=== PATIENT | female | born 1930 | race African-American/Black ===

== ENCOUNTER 2016-05-20 07:36 | Inpatient (IN) | payer MEDICARE, BC ==
[2016-05-20] VITALS (15 sets, daily range): BP systolic 118–169; BP diastolic 61–90; PULSE 23–99; RESP 15–21; TEMP 96.5–97.9; O2SAT 5–99
[~2016-05-20] VITALS: Ht 167.6 cm; Wt 70.5 kg
[~2016-05-20 07:36] MED LIST: ASPI81 PO; ATEN1TAB73 PO; CALC600T34 PO; CALC625 PO; FISH1000 PO; METH2.5 PO; PRED5 PO; RANI150 PO; SIMV20 PO; TYLE3 PO; VICOTAB4 PO
--- NOTE | 2016-05-20 08:17 | PD ---
HPI Chief Complaint: GI Complaint Time Seen by Provider: 07:46 Travel History International Travel<30 days: No Contact w/Intl Traveler<30days: No Traveled to known affect area: No History of Present Illness HPI 85-year-old female came to the emergency room with history of abdominal pain, nausea and vomiting for past 2 days. She is here with her neighbor who brought her in. Patient seems uncomfortable. She is not the best historian and the history is obtained both from her and the friend. Patient points to her periumbilical area as the location of her pain. No radiation. Vital signs were stable. She said she vomited couple times last night. PFSH Past Medical History Narrative Medical List of her past medical, surgical, social and family history was reviewed from the nursing note. Hx Anticoagulant Therapy: No Arthritis: Yes Heart Rhythm Problems: Yes (TACHYCARDIA) High Cholesterol: Yes Hypertension: Yes Immunizations Current: No Tetanus Vaccination: Unknown Influenza Vaccination: No ?: Not Menopausal: Yes Past Surgical History Surgical History: No Previous Surgery Tonsillectomy: Yes Other Surgery: Yes Social History Alcohol Use: No Tobacco Use: No Substance Use: No Allergies-Medications (Allergen,Severity, Reaction): Coded Allergies: Motrin (Verified Allergy, Severe, 05/20/16) Comments List of her allergies reviewed from the nursing note. Reported Meds & Prescriptions Reported Meds & Active Scripts Active Tylenol #3 (Acetaminophen/Codeine Phosphate) 300 Mg/30 Mg Tab 1 Tab PO Q6HPRN Reported Fiber Con (Calcium Polycarbophil) 625 Mg Tab 1,250 Mg PO DAILY Calcium 600 Mg Tab 600 Mg PO DAILY Fish Oil 1,000 Mg Cap 1,200 Mg PO DAILY Tenormin (Atenolol) 25 Mg Tab 25 Mg PO DAILY Zocor (Simvastatin) 20 Mg Tab 20 Mg PO HS Rheumatrex (Methotrexate) 2.5 Mg Tab 10 Mg PO WEEKLY Zantac (Ranitidine HCl) 150 Mg Tab 150 Mg PO Vicoprofen (Hydrocodone Bitartrate/Ibuprofen) 7.5 Mg/200 Mg Tab 1 Tab PO QID Deltasone 5 mg Tab (Prednisone) 5 Mg Tab 10 Mg PO DAILY Narrative Medication List of her home medications reviewed from the nursing note. Review of Systems Except as stated in HPI: all other systems reviewed are Neg Physical Exam Narrative GENERAL: Awake, alert, elderly and frail, moderate distress, anxious SKIN: Warm and dry. Pale HEAD: Atraumatic. Normocephalic. EYES: Pupils equal and round. No scleral icterus. No injection or drainage. Pallor ENT: No nasal bleeding or discharge. Dry mucous membrane with coated tongue. NECK: Trachea midline. No JVD. CARDIOVASCULAR: Regular rate and rhythm. No murmur appreciated. RESPIRATORY: No accessory muscle use. Clear to auscultation. Breath sounds equal bilaterally. GASTROINTESTINAL: Abdomen soft, tender in the periumbilical area, nondistended. Hepatic and splenic margins not palpable. MUSCULOSKELETAL: No obvious deformities. No clubbing. No cyanosis. No edema. NEUROLOGICAL: Awake and alert. No obvious cranial nerve deficits. Motor grossly within normal limits. Normal speech. PSYCHIATRIC: Appropriate mood and affect; insight and judgment normal. Data Data Last Documented VS Vital Signs Date Time Temp Pulse Resp B/P Pulse Ox O2 Delivery O2 Flow Rate FiO2 05/20/16 15:00 84 21 162/74 95 Room Air 05/20/16 08:10 97.9 Orders Type And Screen (05/20/16 08:20) Complete Blood Count With Diff (05/20/16 08:20) Comprehensive Metabolic Panel (05/20/16 08:20) Lipase (05/20/16 08:20) Prothrombin Time / Inr (Pt) (05/20/16 08:20) Urinalysis - C+S If Indicated (05/20/16 08:20) Ct Abd/Pel W/O Iv Contrast (05/20/16 08:20) Iv Access Insert/Monitor (05/20/16 08:20) Ecg Monitoring (05/20/16 08:20) Oximetry (05/20/16 08:20) Ondansetron Inj (Zofran Inj) (05/20/16 08:30) Sodium Chloride 0.9% Flush (Ns Flush) (05/20/16 08:30) Troponin I (05/20/16 08:20) Lactic Acid (05/20/16 08:20) Sodium Chlorid 0.9% 500 Ml Inj (Ns 500 M (05/20/16 08:30) Electrocardiogram (05/20/16 ) Sodium Chlorid 0.9% 500 Ml Inj (Ns 500 M (05/20/16 10:00) Piperacil-Tazo 4.5 Gm Premix (Zosyn 4.5 (05/20/16 10:00) Ct Abd/Pel W Iv Contrast(Rout) (05/20/16 10:08) Oral Contrast - Adult (05/20/16 10:09) Diatrizoate Liq (Md Flores Liq) (05/20/16 10:24) Metoclopramide Inj (Reglan Inj) (05/20/16 10:45) Iohexol 350 Inj (Omnipaque 350 Inj) (05/20/16 13:26) Insert Ng Tube (05/20/16 15:08) Admit Order (Ed Use Only) (05/20/16 15:11) Labs Laboratory Tests Test 05/20/16 05/20/16 05/20/16 08:10 08:25 08:30 Urine Color YELLOW Urine Turbidity CLEAR Urine pH 7.0 Urine Specific [place] 1.030 Urine Protein 100 mg/dL Urine Glucose (UA) NEG mg/dL Urine Ketones TRACE mg/dL Urine Occult Blood NEG Urine Nitrite NEG Urine Bilirubin NEG Urine Urobilinogen LESS THAN 2.0 MG/DL Urine Leukocyte Esterase NEG Urine RBC 2 /hpf Urine WBC 2 /hpf Urine Squamous Epithelial <1 /hpf Cells Urine Hyaline Casts 11 /lpf Urine Mucus FEW /lpf Microscopic Urinalysis Comment CULT NOT INDICATED White Blood Count 13.3 TH/MM3 Red Blood Count 4.36 MIL/MM3 Hemoglobin 12.6 GM/DL Hematocrit 37.9 % Mean Corpuscular Volume 87.1 FL Mean Corpuscular Hemoglobin 28.9 PG Mean Corpuscular Hemoglobin 33.2 % Concent Red Cell Distribution Width 16.0 % Platelet Count 355 TH/MM3 Mean Platelet Volume 8.1 FL Neutrophils (%) (Auto) 88.0 % Lymphocytes (%) (Auto) 5.8 % Monocytes (%) (Auto) 5.7 % Eosinophils (%) (Auto) 0.2 % Basophils (%) (Auto) 0.3 % Neutrophils # (Auto) 11.7 TH/MM3 Lymphocytes # (Auto) 0.8 TH/MM3 Monocytes # (Auto) 0.8 TH/MM3 Eosinophils # (Auto) 0.0 TH/MM3 Basophils # (Auto) 0.0 TH/MM3 CBC Comment DIFF FINAL Differential Comment Prothrombin Time 10.7 SEC Prothromb Time International 1.0 RATIO Ratio Sodium Level 136 MEQ/L Potassium Level 3.8 MEQ/L Chloride Level 99 MEQ/L Carbon Dioxide Level 26.1 MEQ/L Anion Gap 11 MEQ/L Blood Urea Nitrogen 29 MG/DL Creatinine 1.37 MG/DL Estimat Glomerular Filtration 44 ML/MIN Rate Random Glucose 135 MG/DL Calcium Level 8.8 MG/DL Total Bilirubin 0.4 MG/DL Aspartate Amino Transf 13 U/L (AST/SGOT) Alanine Aminotransferase 13 U/L (ALT/SGPT) Alkaline Phosphatase 68 U/L Troponin I LESS THAN 0.02 NG/ML Total Protein 7.5 GM/DL Albumin 3.1 GM/DL Lipase 159 U/L Blood Type O NEGATIVE Antibody Screen NEGATIVE Lactic Acid Level 1.9 mmol/L MDM Medical Decision Making Medical Screen Exam Complete: Yes Emergency Medical Condition: Yes Medical Record Reviewed: Yes Interpretation(s) Twelve-lead EKG was reviewed by me. Normal sinus rhythm, normal axis, multiple PVCs, nonspecific ST-T wave changes. Heart rate of 84 bpm. Differential Diagnosis Small bowel obstruction, mesenteric adenitis, enteritis Narrative Course 1:38 PM blood test results were back. Patient has leukocytosis. Initial CT was done without contrast which was read by the radiologist as subtle abnormality noticed and questioning abscess. Require repeat CT with by mouth contrast. It took a long time for the patient to drink the contrast since initially she was very nauseous and had to be medicated twice. The CT just got done. Awaiting for the CT report at this point. Patient was given IV fluid bolus. She was given IV antibiotics as well. Patient is nothing by mouth currently. Patient is dehydrated and he is within normal limits. 3:[address] was suggestive of possible small bowel obstruction versus ileus as per the radiologist. An NG tube was ordered. Patient was admitted to the hospitalist. She will require surgical consult probably and repeat x-rays versus CT. Procedures EKG Prior to Arrival: No Diagnosis Primary Impression: Small bowel obstruction Additional Impressions: Abdominal pain Qualified Code: R10.33 - Periumbilical abdominal pain Intractable vomiting Qualified Code: R11.10 - Intractable vomiting, presence of nausea not specified, unspecified vomiting type Admitting Information Admitting Physician Requests: Admit Fabrice Liao MD May 20, 2016 08:17
[2016-05-20] MEDS ORDERED: SODIUM CHLORID 0.9% 500 ML INJ 500 ML IV ONE ×2 (08:30→10:00)
[2016-05-20] MEDS ORDERED: ONDANSETRON HCL 4 MG/2 ML VIAL IVP ONE (08:30)
[2016-05-20] MEDS ORDERED: SODIUM CHLORIDE 0.9% FLUSH 5 ML FLUSH IVF PRN (08:30)
[2016-05-20 08:45] LABS: AUTOMATED NEUTROPHIL # 11.7 TH/MM3 (1.8-7.7); BASOPHIL % 0.3 % (0.0-2.0); EOSINOPHIL % 0.2 % (0.0-4.0); HEMATOCRIT 37.9 % (35.0-46.0); HEMO FLAGS DIFF FINAL; LYMPH % 5.8 % (9.0-44.0); LYMPHOCYTE # 0.8 TH/MM3 (1.0-4.8); MEAN CELL VOLUME 87.1 FL (80.0-100.0); MEAN CORPUSCULAR HEMOGLOBIN 28.9 PG (27.0-34.0); MEAN CORPUSCULAR HGB CONC 33.2 % (32.0-36.0); MONO % 5.7 % (0.0-8.0); PLATELET COUNT 355 TH/MM3 (150-450); RED BLOOD COUNT 4.36 MIL/MM3 (4.00-5.30); WHITE BLOOD COUNT 13.3 TH/MM3 (4.0-11.0)
[2016-05-20 08:53] LABS: PROTHROMBIN TIME - PATIENT 10.7 SEC (9.8-11.6)
[2016-05-20 09:01] LABS: BLOOD, URINE NEG (NEG); COMMENT (UR) CULT NOT INDICATED; CULTURE IF INDICATED CULT NOT INDICATED; GLUCOSE,URINE NEG (NEG); HYALINE CAST, URINE 11 /lpf (RARE); KETONE, URINE TRACE mg/dL (NEG); MUCUS URINE FEW /lpf (OCC); NITRITE,URINE NEG (NEG); SQUAMOUS EPITHELIAL CELL URINE <1 /hpf (0-5); URINE COLOR YELLOW (YELLW/STRAW)
[2016-05-20 09:06] LABS: ANION GAP 11 MEQ/L (5-15); AST (GOT) 13 U/L (15-37); BICARBONATE 26.1 MEQ/L (21.0-32.0); BLOOD UREA NITROGEN 29 MG/DL (7-18); CHLORIDE 99 MEQ/L (98-107); GLOMERULAR FILTRATION RATE 44 ML/MIN (>89); POTASSIUM 3.8 MEQ/L (3.5-5.1); SODIUM (NA) 136 MEQ/L (136-145)
[2016-05-20 09:11] LABS: ALKALINE PHOSPHATASE 68 U/L (45-117); ALT (GPT) 13 U/L (10-53); TOTAL BILIRUBIN ADULT 0.4 MG/DL (0.2-1.0)
--- NOTE | 2016-05-20 09:40 | RADRPT ---
EXAM DATE/TIME: 05/20/2016 08:50 [facility] COMPARISON: No previous studies available for comparison. INDICATIONS : Mid-abdomen pain, nausea and vomiting. ORAL CONTRAST: No oral contrast ingested. RADIATION DOSE: 9.96 CTDIvol (mGy) MEDICAL HISTORY : Hypertension. SURGICAL HISTORY : None. ENCOUNTER: Initial ACUITY: 1 day PAIN SCALE: 6/10 LOCATION: abdomen TECHNIQUE: Volumetric scanning of the abdomen and pelvis was performed. Using automated exposure control and ad justment of the mA and/or kV according to patient size, radiation dose was kept as low as reasonably achievable to obtain optimal diagnostic quality images. FINDINGS: There is mild dilatation of the descending aorta. Minimal bibasilar parenchymal changes are noted. There is no pneumothorax. 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 The liver is free of focal defects. Trace ascites is noted. There is induration in the mesentery in the right upper quadrant. A small abscess cannot be excluded . I cannot find any free air. Calcification is seen in the uterus. Excessive vascular calcifications are evident. CONCLUSION: 1. Abnormal CT scan of the abdomen. Repeat CT scan is suggested with good oral contrast to exclude an abscess. There is only partial bowel opacification on this study. 2. Extensive vascular calcifications with dilatation of the thoraco-abdominal aorta as described abo ve. Dallas Nunez MD FACR on May 20, 2016 at 9:26 Board Certified Radiologist. This report was verified electronically.
[2016-05-20] MEDS ORDERED: PIPERACIL-TAZO 4.5 GM PREMIX 100 ML IV ONE (10:00)
[2016-05-20] MEDS ORDERED: DIATRIZOATE MEGLUM/DIATRIZOATE SOD 9 ML CUP ONE (10:24)
[2016-05-20] MEDS ORDERED: METOCLOPRAMIDE HCL 10 MG/2 ML VIAL IV PUSH ONE (10:45)
--- NOTE | 2016-05-20 11:56 | EKG ---
Date Performed: 05/20/2016 Time Performed: 08:31:19 PTAGE: 85 years EKG: Sinus rhythm WITH FREQUENT VENTRICULAR PREMATURE COMPLEXES WITH OCCASIONAL SUPRAVENTRICULAR PREMATURE COMPLEXES P OSSIBLE LEFT ATRIAL ENLARGEMENT ABNORMAL RHYTHM ECG PREVIOUS TRACING : 02/14/2010 12.19 DOCTOR: Rhett Enriquez Interpretating Date/Time 05/20/2016 11:54:12
[2016-05-20] MEDS ORDERED: IOHEXOL 350 MG/ML 10 ML VIAL (for RAD DIAG) IV ONE (13:26)
[2016-05-20] MEDS ORDERED: ACETAMINOPHEN 325 MG TAB PO PRN (15:30)
[2016-05-20] MEDS ORDERED: NALOXONE HCL 0.4 MG/ML AMP IV PRN (15:30)
[2016-05-20] MEDS ORDERED: SODIUM CHLORIDE 0.9% FLUSH 5 ML FLUSH FLUSH PRN (15:30)
--- NOTE | 2016-05-20 15:52 | RADRPT ---
EXAM DATE/TIME: 05/20/2016 13:18 [facility] COMPARISON: CT ABDOMEN & PELVIS W/O CONTRAST, May 20, 2016, 8:50. INDICATIONS : Mid-abdomen pain with nausea and vomiting. IV CONTRAST: 75 cc Omnipaque 350 (iohexol) IV ORAL CONTRAST: Prescribed oral contrast ingested. RADIATION DOSE: 9.96 CTDIvol (mGy) MEDICAL HISTORY : Hypertension. SURGICAL HISTORY : None. ENCOUNTER: Initial ACUITY: 1 day PAIN SCALE: 6/10 LOCATION: Abdomen. TECHNIQUE: Volumetric scanning of the abdomen and pelvis was performed. Using automated exposure control and adjustment of the mA and/or kV according to patient size, radiation dose was kept as low as reasonably achievable to obtain optimal diagnostic quality images. FINDINGS: Lung bases are clear. There is mild dilatation of the descending aorta. The descendin g aorta is dilated to 3.8 cm. There is no pericardial effusion. There is moderate ascites. The dolores er is small. Spleen is unremarkable. Pancreas and adrenals are unremarkable. Kidneys are small and shrunken. There is no adenopathy. In the pelvis, there is a calcification what looks like a fibroid uterus. There is trace fluid in th e pelvis. There is no adnexal mass to account for the ascites. There is dilatation of a proximal small bowel when compared to distal. The distal small bowel is de compressed in its very distal segment. The cecum is decompressed as well. CONCLUSION: 1. Findings suspicious for a small bowel obstruction at or near the cecum and/or terminal ileum. The re are no inflammatory changes evident to suggest an inflammatory process. 2. The liver is small and shrunken with a modest amount of ascites. 3. I have no prior. The area of concern in the right mid abdomen is only normal appearing small danny l. I do not see an abscess. 4. In spite of the moderate vascular calcifications I do see a normal appearing SMA. The DWAYNE is not well visualized. Dallas Nunez MD FACR on May 20, 2016 at 15:28 Board Certified Radiologist. This report was verified electronically.
[2016-05-20] MEDS ORDERED: MORPHINE SULFATE 4 MG/ML INJ IV PUSH ONE (16:45)
[2016-05-20] MEDS: HEPARIN SODIUM - SQ 10,000 UNITS/ML VIAL SQ SCH (16:56)
[2016-05-20] MEDS: D5-1/2 NS + KCL 20 MEQ INJ 1,000 ML IV SCH (16:57)
[2016-05-20] MEDS ORDERED: hydrALAZINE HCL 20 MG/ML VIAL IV PUSH PRN (17:15)
--- NOTE | 2016-05-20 18:35 | RADRPT ---
EXAM DATE/TIME: 05/20/2016 17:53 [facility] COMPARISON: CT ABDOMEN & PELVIS W/O CONTRAST, May 20, 2016, 8:50. CT ABDOMEN & PELVIS W CONTRAST, May 20 17, 13:18. INDICATIONS : Confirm NG tube placement. MEDICAL HISTORY : None. SURGICAL HISTORY : None. ENCOUNTER: Initial ACUITY: 1 day PAIN SCORE: Non-responsive. LOCATION: chest FINDINGS: Examination of the abdomen demonstrates a persistent small bowel ileus. Nasogastric tube is within th e fundus of the stomach.. No free air is identified. No organomegaly is evident. Calcific atheroscl erotic vascular disease is noted. Degenerative changes of the spine are noted. CONCLUSION: Persistent partial small bowel obstructive pattern. Nasogastric tube in the fundus of the stomach. Soy Temple MD on May 20, 2016 at 18:31 Board Certified Radiologist. This report was verified electronically.
[2016-05-20] MEDS: SODIUM CHLORIDE 0.9% FLUSH 5 ML FLUSH FLUSH SCH (21:00)
[2016-05-21] VITALS (8 sets, daily range): BP systolic 120–141; BP diastolic 59–82; PULSE 67–87; RESP 17–20; TEMP 97.4–98.8; O2SAT 94–96
--- NOTE | 2016-05-21 00:04 | MB ---
cc: ISAAC GARZA M.D. DATE OF : 1930 DATE OF CONSULTATION: 05/20/2016 REASON FOR CONSULTATION: Possible bowel obstruction. HISTORY OF PRESENT ILLNESS Ms. Gray is a very pleasant 85 year-old -[place] female who presented to the emergency department for nausea, vomiting, abdominal pain for 48 hours. She states that over the last two days she has not been feeling well. She has had abdominal pain and vomiting. She states she has vomited multiple times. She reports periumbilical abdominal pain that radiates toward her right side. She denies previous episodes. She denies previous surgeries. She denies any fever or chills. Overall the patient is not a fantastic historian but she is able to provide basic information. PAST MEDICAL HISTORY: She denies any significant medical history. PAST SURGICAL HISTORY: She denies any previous surgeries. SOCIAL HISTORY: She lives alone with assistance of her children who check on her. She does not smoke or drink. She does not do any drugs. MEDICATIONS: Documented in the EMR. Please see it for details. ALLERGIES: MOTRIN PHYSICAL EXAMINATION: VITAL SIGNS: Temperature is 98, pulse is 80, blood pressure is 140/90, respiratory 20. GENERAL: A pleasant thin elderly female, sitting in the emergency department who appears comfortable in no distress. HEENT: Pupils equal, round, and reactive to light. Sclera white. Oropharynx is clear and moist. She has an NG tube in place in the left nares. Neck is supple. Lungs: Clear to auscultation bilaterally. Heart: S1-S2 no murmur. Abdomen: Soft, slightly tender. No rebound or guarding. She does have a few bowel sounds. Overall appears to be hypoactive. There is no significant distension noted. She has no abdominal scars that I can appreciate. No palpable masses. Extremities: Free range of motion x4. Neurological: Alert and oriented x3. LABORATORY DATA: White blood cell count 13, hemoglobin 12, platelet count 355, electrolytes are all within normal limits except for elevated creatinine of 1.37. Elevated glucose 135. X-RAYS: CT scan of the abdomen and pelvis shows diffuse dilatation of the small bowel and stomach with decompressed colon. No obvious masses. She does have some left free fluid noted around the liver. No obvious hernias. IMPRESSION Ileus versus small bowel obstruction. PLAN At this point the patient has no previous surgical procedures so the chance of her having a mechanical bowel obstruction from adhesions is very low. Her most likely diagnosis is ovalle ileus versus obstruction from malignancy. I assisted the nurse in repositioning the NG tube and we got out about 600 cc. The patient states that she feels better after the NG tube was placed. I recommended a follow up abdominal film tomorrow to check the CT contrast to see if it has progressed to the colon. The patient should be managed several days with nonoperative management as she does not actually need surgery at this time and I would like to avoid it if at all possible. If she progresses about surgical intervention, can likely DC her NG and start her on a diet. However, if she fails she may require diagnostic laparoscopy possible exploratory laparotomy to rule out a malignancy causing the distal obstruction. MD MARSHALL Osuna/NOMAN /9:50 PM /11:55 PM
[2016-05-21] MEDS: MORPHINE SULFATE 4 MG/ML INJ IV PRN ×2 (00:22→13:25)
[2016-05-21] MEDS: PIPERACIL-TAZO 3.375 GM PREMIX 50 ML IV SCH ×3 (00:23→12:45)
[2016-05-21] MEDS ORDERED: MORPHINE SULFATE 4 MG/ML INJ IV PRN (00:30)
[2016-05-21] MEDS: FAMOTIDINE 20 MG/2 ML VIAL IV SCH ×2 (01:10→12:44)
[2016-05-21 04:02] LABS: HEMATOCRIT 39.7 % (35.0-46.0); MEAN CELL VOLUME 85.8 FL (80.0-100.0); MEAN CORPUSCULAR HEMOGLOBIN 28.1 PG (27.0-34.0); MEAN CORPUSCULAR HGB CONC 32.7 % (32.0-36.0); PLATELET COUNT 378 TH/MM3 (150-450); RED BLOOD COUNT 4.63 MIL/MM3 (4.00-5.30); RED CELL DISTRIBUTION WIDTH 16.2 % (11.6-17.2); WHITE BLOOD COUNT 15.4 TH/MM3 (4.0-11.0)
[2016-05-21 04:03] LABS: HEMO FLAGS AUTO DIFF
[2016-05-21 04:26] LABS: BICARBONATE 25.8 MEQ/L (21.0-32.0); POTASSIUM 4.2 MEQ/L (3.5-5.1)
[2016-05-21] MEDS: HEPARIN SODIUM - SQ 10,000 UNITS/ML VIAL SQ SCH ×2 (05:44→16:38)
[2016-05-21] MEDS: D5-1/2 NS + KCL 20 MEQ INJ 1,000 ML IV SCH ×2 (05:45→16:38)
--- NOTE | 2016-05-21 06:28 | RADRPT ---
EXAM DATE/TIME: 05/21/2016 05:54 [facility] COMPARISON: CT ABDOMEN & PELVIS W CONTRAST, May 20, 2016, 13:18. INDICATIONS : Follow up obstruction. MEDICAL HISTORY : None. SURGICAL HISTORY : None. ENCOUNTER: Subsequent ACUITY: 3 days PAIN SCORE: 6/10 LOCATION: Bilateral lower quadrant FINDINGS: Supine view of the abdomen was performed. There is persistent gaseous distention of small bowel the d iameter of about 4 cm characteristic of small bowel obstruction. There is some residual contrast in d istal bowel and within the bladder. Scoliosis. CONCLUSION: 1. Persistent gaseous distention of small bowel similar to May 20. NG coiled in stomach. Jonathan Sandoval MD on May 21, 2016 at 6:24 Board Certified Radiologist. This report was verified electronically.
[2016-05-21 07:14] LABS: BANDS 7 % (0-6); BASOPHILS 1 % (0-2); EOSINOPHILS 1 % (0-4); NEUTROPHIL # MANUAL DIFF 13.7 TH/MM3 (1.8-7.7); PLATELET ESTIMATE SMEAR NORMAL (NORMAL); PLATELET MORPHOLOGY NORMAL (NORMAL); POLYS (SEG NEUTROPHILS) 82 % (16-70); SCAN/DIFF FINAL DIFF MANUAL; WBC DIFF SAMPLE 100
[2016-05-21] MEDS: SODIUM CHLORIDE 0.9% FLUSH 5 ML FLUSH FLUSH SCH ×2 (08:01→21:00)
--- NOTE | 2016-05-21 08:20 | MH ---
cc: JOHNATHON BENJAMIN MD DATE OF ADMISSION 05/20/2016 DATE OF 1930 CHIEF COMPLAINT Abdominal pain. Travel in the past 30 days, none. HISTORY OF THE PRESENT ILLNESS This is a pleasant 85-year-old black female who had been in her usual state of health up until the past few days. She noticed some mild pain in her mid abdomen around the umbilical area which seemed to be more of a cramping sensation. She states the pain would come and go but after 24 hours the pain became more intense to the point that the patient could not rest last night. She now describes it as a sharp pain that does not radiate. It seems to stay in the area of her periumbilical area. She does complain of some nausea and vomiting in which she vomited several times last night. She also notes some diarrhea approximately a week ago. The patient does take laxatives on an as needed basis but states that sometimes she has to take one or two doses every week for her bowels to move. She does not remember when she had her last normal bowel movement but she thinks it was a day or two before this diarrhea started up approximately a week ago. The patient states that she did eat a regular supper last night but was unable to eat any breakfast this morning. She currently has a neighbor who is at her bedside and assisting with some of her history. The patient is alert, oriented, cooperative but she is a fair historian when it comes to her history. She can answer simple yes or no questions. Currently the patient denies any chest pain. No shortness of breath. No headache. No acute weight gain or weight loss over the past few months. The patient does walk with a cane. She is able to do most of her activities of daily living but she does have two grown daughters that live in the home with her. PAST MEDICAL HISTORY According to the record includes: 1. Arthritis. 2. Hyperlipidemia. 3. History of tachycardia. 4. Hypertension. PAST SURGICAL HISTORY Tonsillectomy. ALLERGIES MOTRIN. MEDICATIONS Reported medications: 1. Fiber Con. 2. Calcium. 3. Fish oil. 4. Tenormin. 5. Zocor. 6. Methotrexate. 7. Zantac. 8. Vicoprofen. 9. Deltasone. SOCIAL HISTORY The patient denies any tobacco, alcohol or illicit drug use. She does live in her own home with two grown daughters who live with her. She also has a son that lives out of town but is her main melter assistant when she needs to make decisions. This information is given to me per the neighbor. Son's name is Miguel. FAMILY HISTORY Not applicable. REVIEW OF SYSTEMS A 10 point review was done. Positives noted were the patient's nausea, vomiting, abdominal pain, diarrhea approximately one week ago, generalized weakness. Sub systems are unremarkable or negative. PHYSICAL EXAMINATION VITAL SIGNS: Temperature 97.9, pulse 99, respiratory rate 20, blood pressure initially on admission was 131/70, now is 162/89. The patient's O2 saturation 99% on room air. GENERAL: This is a elderly, frail black female looks to be her stated age. Alert, conversational. Giving basic information. Mild to moderate anxiety over receiving an nasogastric tube. SKIN: Pale mucous membranes. Warm and dry. HEENT: Atraumatic, normocephalic. Pupils equal, round, reactive at 2. No scleral icterus. No drainage. She does have pale mucous membranes. No nasal discharge. NECK: Thin, supple. Trachea is midline. CARDIOVASCULAR: Regular rate and rhythm. No murmurs, rubs or gallops noted. She has no edema and her pulses are intact. LUNGS: Essentially clear to auscultation anteriorly and posteriorly with no wheezes, rhonchi or rales. ABDOMEN: Round. Taut. Some mild tenderness on palpation around the umbilical area. She has some hypoactive bowel sounds in her upper left and right quadrants but no bowel sounds appreciated in her lower quadrants. MUSCULOSKELETAL: She moves her extremities with purpose. 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 She can overcome resistance. She has some mild arthritic changes in her feet bilaterally. No cyanosis. No edema. NEUROLOGICAL: She is alert and oriented. Able to answer simple questions about her symptoms. Speech is clear. PSYCHIATRIC: A lot of anxiety over current condition. Judgment is normal. LABORATORY DATA Diagnostic data, WBC is 13.3, RBC 4.36, hemoglobin 12.6, hematocrit 37.9. Platelet count 355. Lymphocyte count 5.8. Neutrophil count although 88. PT INR 1.0. Chemistry shows sodium of 136, potassium 3.8, chloride 99, carbon dioxide 26.1, anion gap 11. BUN 29, creatinine 1.37. GFR 44. Glucose is 135. Troponin is less than 0.02. Albumin 3.1. Urine is yellow, clear, pH is 7.0, specific gravity is 1.030, protein 100, glucose negative. Ketones trace. Occult blood negative. Nitrates negative. Bilirubin negative. Leukocyte esterase negative. No culture pending. IMAGING Shows abdominal CT scan initially done at [address] scan, cannot exclude an abscess but there is only a partial bowel opaque showing in the study. Extensive vascular calcifications on the aorta. This scan was repeated at 10:08, suspicious for small bowel obstruction at or near the cecum or the terminal ileum. There is no inflammatory changes to show an inflammatory process. The liver is small and shrunken with a modest amount of ascites. In spite of moderate vascular calcification I see a normal SMA. The DWAYNE is not that well visualized. ASSESSMENT AND PLAN 1. Small bowel obstruction. 2. Leukocytosis. 3. Renal insufficiency. 4. Mild protein calorie malnutrition. 5. Abdominal pain. 6. Nausea and vomiting. 7. Hypertension. Our plan is to admit for inpatient status. For her course of treatment we will monitor her vital signs q.4h. Activity, out of bed with some assistance. We will monitor her blood glucose before meals and bedtime at least for 24 hours. The patient is not a known diabetic. Telemetry monitoring, intake and output. We will consult general surgery. The patient will be n.p.o. She will have an nasogastric tube inserted for her treatment regimen. Gentle hydration with IV fluids. O2 per nasal cannula. She will be placed on Zosyn IV. VTE prophylaxis with heparin. Peptic ulcer disease prophylaxis with Pepcid IV. The patient will require intake and output. Reconcile her medications. Depending on her response to treatment we will continue to re-evaluate her needs over the course of this hospital stay. The patient has no living will. The patient would like her son to be called if there is any emergency decisions that need to be made on her. She will be full code, full aggressive care and we will follow. DICTATED BY: IFEOMA Wei MD VALDO Haney/LATHA /4:51 PM /8:18 AM
[2016-05-21] MEDS ORDERED: methylPREDNISolone SOD SUCC 40 MG/1 ML VIAL IM SCH (09:00)
[2016-05-21] MEDS ORDERED: FAMOTIDINE 20 MG/2 ML VIAL IV SCH (09:00)
[2016-05-21] MEDS: methylPREDNISolone SOD SUCC 40 MG/1 ML VIAL IV SCH (10:03)
--- NOTE | 2016-05-21 13:58 | HHI.PR ---
Subjective Remarks alert responding to verbal stimuli NGT, draining. occ abd pain reoccurs, periumbilical Objective Objective Results - Vital Signs Date Time Temp Pulse Resp B/P Pulse Ox O2 Delivery O2 Flow Rate FiO2 05/21/16 08:00 98.8 75 17 120/59 95 05/21/16 06:01 77 05/21/16 04:00 97.4 72 17 135/62 94 05/21/16 00:12 84 05/21/16 00:00 98.2 87 19 137/82 96 05/20/16 23:45 96.5 81 18 132/88 93 05/20/16 19:18 77 18 140/90 97 05/20/16 17:21 80 19 149/70 97 05/20/16 17:00 82 15 149/68 97 Room Air 05/20/16 16:00 78 21 151/72 5 Room Air 05/20/16 15:00 84 21 162/74 95 Room Air 05/20/16 14:00 73 18 165/83 98 Room Air I/O 05/20/16 05/20/16 05/20/16 05/21/16 05/21/16 05/21/16 07:00 15:00 23:00 07:00 15:00 23:00 Intake Total 1133 ml 0 ml Output Total 200 ml 100 ml Balance -200 ml 1033 ml 0 ml Intake Oral 0 ml 0 ml IV Total 1133 ml Output Gastric Drainage Total 100 ml Emesis 200 ml # Voids 1 6 Result Diagram: 05/21/16 0322 05/21/16 0322 Other Results Last Impressions Abdomen X-Ray 05/21/16 0600 Signed Impressions: Service Date/Time: May 05:54 - CONCLUSION: 1. Persistent gaseous distention of small bowel similar to May 20. NG coiled in stomach. Jonathan Sandoval MD Abdomen/Pelvis CT 05/20/16 1008 Signed Impressions: Service Date/Time: Friday, May 20, 2016 13:18 - CONCLUSION: 1. Findings suspicious for a small bowel obstruction at or near the cecum and/or terminal ileum. There are no inflammatory changes evident to suggest an inflammatory process. 2. The liver is small and shrunken with a modest amount of ascites. 3. I have no prior. The area of concern in the right mid abdomen is only normal appearing small bowel. I do not see an abscess. 4. In spite of the moderate vascular calcifications I do see a normal appearing SMA. The DWAYNE is not well visualized. Dallas Nunez MD FACR Medications and IVs Active Medications Acetaminophen (Tylenol) 650 mg Q4H PRN PO; Start 05/20/16 at 15:30 Famotidine (Pepcid Inj) 20 mg BID IV; Start 05/21/16 at 09:00; Stop 05/21/16 at 09 :00; Status DC Famotidine (Pepcid Inj) 20 mg Q12H IV Last administered on 05/21/16 12:44; Admin Dose 20 MG; Start 05/21/16 at 01:00 Heparin Sodium (Porcine) (Heparin Inj) 5,000 units Q12H SQ Last administered on 05/21/16 05:44; Admin Dose 5,000 UNITS; Start 05/20/16 at 16:00 Hydralazine HCl (Apresoline Inj) 10 mg Q4H PRN IV PUSH; Start 05/20/16 at 17:15 IV Flush (NS Flush) 2 ml BID FLUSH; Start 05/20/16 at 21:00 IV Flush (NS Flush) 2 ml UNSCH PRN FLUSH; Start 05/20/16 at 15:30 Methylprednisolone Sodium Succinate (SoluMEDROL INJ) 10 mg DAILY IM; Start at 09:00; Stop 05/21/16 at 10:00; Status DC Methylprednisolone Sodium Succinate (SoluMEDROL INJ) 10 mg DAILY IV Last administered on 05/21/16 10:03; Admin Dose 10 MG; Start 05/21/16 at 10:00 Morphine Sulfate (Morphine Inj) 1 mg Q3H PRN IV Last administered on 05/21/16 13:25; Admin Dose 1 MG; Start 05/21/16 at 00:15 Morphine Sulfate (Morphine Inj) 1 mg Q3H PRN IV; Start 05/21/16 at 00:30 Morphine Sulfate (Morphine Inj) 4 mg ONCE ONCE IV PUSH Last administered on 05/20 16:57; Admin Dose 4 MG; Start 05/20/16 at 16:45; Stop 05/20/16 at 16:46; Status DC Naloxone HCl 0.4 mg 0.4 mg UNSCH PRN IV; Start 05/20/16 at 15:30 Ondansetron HCl (Zofran Inj) 4 mg Q6H PRN IVP; Start 05/20/16 at 15:30 Piperacillin Sod/ Tazobactam Sod (Zosyn 3.375 Gm Premix) 50 ml @ 100 mls/hr Q8HR IV Last administered on 05/21/16 12:45; Admin Dose 100 MLS/HR; Start at 22:00 Potassium Chloride/Dextrose/ Sod Cl (D5-03/23 NS + KCl 20 Meq Inj) 1,000 ml @ 75 mls/hr [id number] IV Last administered on 05/21/16 05:45; Admin Dose 75 MLS/HR; Start 05/20/16 at 15:16 ROS General: Other (in point ROS done. States include generalized weakness, NG tube, no BM, no diarrhea, no shortness of breath, abdominal pain waxes and wanes ) GI: Abdominal Pain Physical Exam Physical Exam PHYSICAL EXAMINATION GENERAL: This is a well-developed, thin female who appears to be wild distress. She is alert and awake, HEAD: Normocephalic without any lesion or mass noted. Facial features appear symmetric. OROPHARYNGEAL: Oropharynx without erythema or edema. NECK: Supple. No nuchal rigidity or lymphadenopathy. Trachea midline without deviation. CARDIAC: Regular rhythm, regular rate, S1 and S2 are heard. LUNGS: Clear to auscultation bilaterally. Eupneic respirations ABDOMEN: Soft, hypoactive Bowel sounds , more in the upper quadrants. mild guarding EXTREMITIES: No edema. Pulses equal bilateral. NEUROLOGICAL: Patient mood and affect appropriate. No focal deficit SKIN:Warm and moist Objective Remarks I'm doing okay I guess A/P Assessment and Plan 1. Small bowel obstruction. 2. Leukocytosis. 3. Renal insufficiency. 4. Mild protein calorie malnutrition. 5. Abdominal pain. 6. Nausea and vomiting. 7. Hypertension. vital signs q.4h., and within normal ranges. Patient afebrile general surgery. NG tube to suction. Patient still having some maria elena-umbilicus , pain off and on but with less intensity. Currently it is thought that this is a pain and ileus versus an obstruction. Currently conservative therapy and less patient does not return to her normal. follow for the next 2 or 3 days for course of treatment. Appreciate expert opinion. Continue with Zosyn, Solu-Medrol VTE prophylaxis with heparin. Peptic ulcer disease prophylaxis with Pepcid IV. Acute kidney injury mildly improved, gentle hydration We'll monitor labs in the morning Zaida MD VALDO Leon/LATHA /4:51 PM /8:18 AM Discussed With: Nurse, Family (patient), Other (dr. lynn, patient seen on his behalf) Jessi Dolan May 21, 2016 13:58
--- NOTE | 2016-05-21 16:46 | HHI.PR ---
Subjective Subjective Notes Resting in bed No complaints Not passing flatus Objective Vitals/I&O Vital Signs Date Time Temp Pulse Resp B/P Pulse Ox O2 Delivery O2 Flow Rate FiO2 05/21/16 12:00 97.8 78 19 130/69 95 05/20/16 17:00 Room Air Labs Laboratory Tests Test 05/21/16 05/21/16 01:41 03:22 Troponin I LESS THAN 0.02 White Blood Count 15.4 Red Blood Count 4.63 Hemoglobin 13.0 Hematocrit 39.7 Mean Corpuscular Volume 85.8 Mean Corpuscular Hemoglobin 28.1 Mean Corpuscular Hemoglobin 32.7 Concent Red Cell Distribution Width 16.2 Platelet Count 378 Mean Platelet Volume 8.5 Neutrophils (%) (Auto) Lymphocytes (%) (Auto) Monocytes (%) (Auto) Eosinophils (%) (Auto) Basophils (%) (Auto) Neutrophils # (Auto) Lymphocytes # (Auto) Monocytes # (Auto) Eosinophils # (Auto) Basophils # (Auto) CBC Comment AUTO DIFF Differential Total Cells 100 Counted Neutrophils % (Manual) 82 Band Neutrophils % 7 Lymphocytes % 5 Monocytes % 4 Eosinophils % 1 Basophils % 1 Neutrophils # (Manual) 13.7 Differential Comment FINAL DIFF MANUAL Platelet Estimate NORMAL Platelet Morphology Comment NORMAL Hematology Comments Sodium Level 135 Potassium Level 4.2 Chloride Level 99 Carbon Dioxide Level 25.8 Anion Gap 10 Blood Urea Nitrogen 24 Creatinine 1.19 Estimat Glomerular Filtration 52 Rate Random Glucose 124 Calcium Level 8.3 Cardiovascular: Regular Lungs: Clear Abdomen: Other (soft; minimally distended ) Extremities: No edema Narrative Exam NGT in place A/P Assessment and Plan 85 year old with SBO vs ileus -Continue NGT to [facility] until bowel function returns -CT abd/pelvis to show where contrast is -NPO--ice chips okay -Out of bed and mobilize I certify and attest that I personally examined this patient and reviewed her findings in the EMR. Ms Reyes is documenting our encounter on my behalf and entered orders under my direct supervision. I discussed our recommendations with the patient and family at the bedside. I also discussed our encounter with the nursing staff present. Queta Hillman MD, FACS May 21, 2016 16:46 Saman Braden MD May 22, 2016 10:44
--- NOTE | 2016-05-21 17:32 | RADRPT ---
EXAM DATE/TIME: 05/21/2016 17:02 [facility] COMPARISON: Prior study 05/20/2016 used for comparison. INDICATIONS : Abdominal pain, distension. ORAL CONTRAST: Prescribed oral contrast ingested. RADIATION DOSE: 13.65 CTDIvol (mGy) MEDICAL HISTORY : Cardiovascular disease. Hypertension. Early small bowel obstruction. SURGICAL HISTORY : None. ENCOUNTER: Subsequent ACUITY: 2 days PAIN SCALE: 4/10 LOCATION: Bilateral lower quadrant TECHNIQUE: Volumetric scanning of the abdomen and pelvis was performed. Using automated exposure control and adjustment of the mA and/or kV according to patient size, radiation dose was kept as low as reasonably achievable to obtain optimal diagnostic quality images. FINDINGS: Noncontrast CT scan of the abdomen and pelvis was performed. There is some fluid withi n the abdomen which has increased since the previous day. There is no free air within the abdomen. There is extensive contrast within the bladder with numerous diverticula likely related to the previo us IV contrasted study. On series 601, images 25 through 29, I believe I see a normal contrast-filled small appendix. Just a florian that and posterior to that is a small soft tissue structure which I am assuming is a decompresse d terminal ileum. That never distends and in retrospect was present on all of the studies, never real ly showing significant distension. There has however been definite improvement in the contrast within the bowel. There is now dense con trast throughout the colon. The oral contrast previously now extends all the way into the rectum. Th e small bowel remains distended similar to the previous study. I do not see a definite transition zo ne but with what I now believe is decompressed terminal ileum differential includes distal terminal i leitis. The unenhanced liver, gallbladder, spleen, pancreas, and kidneys are unremarkable except for a benign left renal cyst. CONCLUSION: 1. We can now clearly identify an appendix therefore I do not believe chronic appendicitis is within the differential. The terminal ileum never distends and the small bowel proximal to that is quite dis tended raising the possibility of a terminal ileitis or conceivably chronic Crohn's disease. 2. More peritoneal fluid today than there was on the previous study. Rhett Henley MD on May 21, 2016 at 17:20 Board Certified Radiologist. This report was verified electronically.
--- NOTE | 2016-05-21 23:44 | EKG ---
Date Performed: 05/21/2016 Time Performed: 01:28:28 PTAGE: 85 years EKG: Sinus rhythm with frequent PVCs Abnormal ECG NO PREVIOUS TRACING DOCTOR: Renato Hidalgo Interpretating Date/Time 05/21/2016 23:43:42
[2016-05-22] VITALS (7 sets, daily range): BP systolic 121–138; BP diastolic 66–80; PULSE 61–85; RESP 16–24; TEMP 96.9–97.5; O2SAT 94–98
[2016-05-22] MEDS: PIPERACIL-TAZO 3.375 GM PREMIX 50 ML IV SCH ×4 (00:03→21:30)
[2016-05-22] MEDS: FAMOTIDINE 20 MG/2 ML VIAL IV SCH ×2 (01:00→12:26)
[2016-05-22 04:59] LABS: AUTOMATED NEUTROPHIL # 10.2 TH/MM3 (1.8-7.7); BASOPHIL % 0.3 % (0.0-2.0); EOSINOPHIL % 0.2 % (0.0-4.0); HEMATOCRIT 36.3 % (35.0-46.0); HEMO FLAGS DIFF FINAL; LYMPH % 7.5 % (9.0-44.0); LYMPHOCYTE # 0.9 TH/MM3 (1.0-4.8); MEAN CELL VOLUME 86.1 FL (80.0-100.0); MEAN CORPUSCULAR HEMOGLOBIN 28.6 PG (27.0-34.0); MEAN CORPUSCULAR HGB CONC 33.2 % (32.0-36.0); MONO % 9.3 % (0.0-8.0); NEUT % 82.7 % (16.0-70.0); PLATELET COUNT 357 TH/MM3 (150-450); RED BLOOD COUNT 4.21 MIL/MM3 (4.00-5.30); WHITE BLOOD COUNT 12.4 TH/MM3 (4.0-11.0)
[2016-05-22] MEDS: HEPARIN SODIUM - SQ 10,000 UNITS/ML VIAL SQ SCH ×2 (05:07→16:14)
[2016-05-22] MEDS: D5-1/2 NS + KCL 20 MEQ INJ 1,000 ML IV SCH ×2 (05:09→20:36)
[2016-05-22 05:28] LABS: BICARBONATE 23.4 MEQ/L (21.0-32.0); MAGNESIUM 2.5 MG/DL (1.5-2.5)
[2016-05-22] MEDS: SODIUM CHLORIDE 0.9% FLUSH 5 ML FLUSH FLUSH SCH ×2 (08:40→20:13)
[2016-05-22] MEDS: methylPREDNISolone SOD SUCC 40 MG/1 ML VIAL IV SCH (08:40)
--- NOTE | 2016-05-22 11:24 | HHI.PR ---
Subjective Subjective Notes Ms. Gray c/o "stomach ache" Objective Vitals/I&O Vital Signs Date Time Temp Pulse Resp B/P Pulse Ox O2 Delivery O2 Flow Rate FiO2 05/22/16 08:00 97.5 65 18 138/66 94 05/20/16 17:00 Room Air Labs Laboratory Tests Test 05/22/16 04:15 White Blood Count 12.4 Red Blood Count 4.21 Hemoglobin 12.0 Hematocrit 36.3 Mean Corpuscular Volume 86.1 Mean Corpuscular Hemoglobin 28.6 Mean Corpuscular Hemoglobin 33.2 Concent Red Cell Distribution Width 16.0 Platelet Count 357 Mean Platelet Volume 8.1 Neutrophils (%) (Auto) 82.7 Lymphocytes (%) (Auto) 7.5 Monocytes (%) (Auto) 9.3 Eosinophils (%) (Auto) 0.2 Basophils (%) (Auto) 0.3 Neutrophils # (Auto) 10.2 Lymphocytes # (Auto) 0.9 Monocytes # (Auto) 1.2 Eosinophils # (Auto) 0.0 Basophils # (Auto) 0.0 CBC Comment DIFF FINAL Differential Comment Sodium Level 135 Potassium Level 4.0 Chloride Level 102 Carbon Dioxide Level 23.4 Anion Gap 10 Blood Urea Nitrogen 21 Creatinine 1.10 Estimat Glomerular Filtration 57 Rate Random Glucose 86 Calcium Level 8.3 Phosphorus Level 2.9 Magnesium Level 2.5 Cardiovascular: Regular Lungs: Clear Abdomen: Other (distended; mildly tender ) Extremities: No edema A/P Assessment and Plan 85 year old with SBO vs ileus -Replace NGT if any nausea or vomiting occurs -CT abd/pelvis to shows possible terminal ileitis -Will start Cirpo/Flagyl -NPO--ice chips okay -Out of bed and mobilize I CERTIFY AND ATTEST THAT I PERSONALLY EXAMINED THIS PATIENT. MS NGUYEN DOCUMENTED OUR VISIT AND ENTERED ORDERS IN THE EMR UNDER MY DIRECT SUPERVISION. I DISCUSSED THE CARE PLAN WITH THE NURSING STAFF AND FAMILY (IF PRESENT). ISAAC GARZA MD [facility] Queta Nguyen May 22, 2016 11:24 Isaac Garza MD May 28, 2016 11:47
--- NOTE | 2016-05-22 11:30 | HHI.PR ---
Subjective Remarks alert responding to verbal stimuli NGT removed, patient eating ice chips occ abd pain reoccurs, periumbilical, improving Objective Objective Results - Vital Signs Date Time Temp Pulse Resp B/P Pulse Ox O2 Delivery O2 Flow Rate FiO2 05/22/16 08:00 97.5 65 18 138/66 94 05/22/16 08:00 64 05/22/16 04:00 97.3 61 18 138/80 96 05/22/16 00:00 97.1 73 20 128/69 98 05/21/16 20:00 98.7 67 20 141/65 95 05/21/16 18:00 98.7 78 19 135/62 96 05/21/16 12:00 97.8 78 19 130/69 95 I/O 05/21/16 05/21/16 05/21/16 05/22/16 05/22/16 05/22/16 07:00 15:00 23:00 07:00 15:00 23:00 Intake Total 1133 ml 0 ml 563 ml 141 ml Output Total 100 ml 300 ml 300 ml Balance 1033 ml -300 ml 563 ml -159 ml Intake Oral 0 ml 0 ml 0 ml 0 ml IV Total 1133 ml 563 ml 141 ml Output Urine Total 200 ml 300 ml Gastric Drainage Total 100 ml 100 ml # Voids 6 1 # Bowel Movements 0 0 2 Result Diagram: 05/22/1641405/22/16414 ROS General: Fatigue, Weakness, Other (10 point ROS done., Abdominal pain waxes and wanes improving, fatigue and weakness. All other systems negative or unremarkable) GI: Abdominal Pain (improved), Other (no diarrhea, no BM yet) Physical Exam Physical Exam PHYSICAL EXAMINATION GENERAL: This is an ill female who appears to be in no acute distress at rest. She is drowsy and responds HEAD: Normocephalic without any lesion or mass noted. Facial features appear symmetric. OROPHARYNGEAL: Oropharynx without erythema or edema., Dry NECK: Supple. No nuchal rigidity or lymphadenopathy. Trachea midline without deviation. CARDIAC: Regular rhythm, regular rate, S1 and S2 are heard. LUNGS: Decreased to auscultation bilaterally. No wheeze, no rhonchi or no rale. No use of accessory muscles on inspiration or expiration.. Low volumes ABDOMEN: Soft, nontender, no organomegaly or masses. Bowel sounds are heard in all four quadrants. No rebound. No guarding. EXTREMITIES: No edema. Pulses equal bilateral. NEUROLOGICAL: Patient mood and affect appropriate. No focal deficit SKIN:Warm and moist Objective Remarks I'm doing okay. A/P Assessment and Plan 1. Small bowel obstruction. 2. Leukocytosis. 3. Renal insufficiency. 4. Mild protein calorie malnutrition. 5. Abdominal pain. 6. Nausea and vomiting. 7. Hypertension. vital signs q.4h., and within normal ranges. Patient afebrile general surgery. NG tube removed. She is eating ice chips currently without any nausea or vomiting. No diarrhea, no BM yet Patient still having some maria elena- umbilicus, pain off and on but with less intensity. Have physical therapy get her out of bed today and start moving her around. Continue with Zosyn, Solu-Medrol Due to the possible diagnosis of Crohn's we will go ahead and consult GI for their expert opinion to assist in her care. VTE prophylaxis with heparin. Peptic ulcer disease prophylaxis with Pepcid IV. Acute kidney injury mildly improved, gentle hydration, continues to improve B UN 21, creatinine 1.1 Labs reviewed, afebrile BP stable 138/66, WBC count decreased 12.4 and continues to decline Physical therapy to get patient out of bed and work with her mobility. We will monitor progression with ice chips today as well as her vital signs. Labs in the morning. Discharge Planning Case management assistance, probable SNF, rehab Discussed With: Nurse, Family (patient), Other (dr. lynn, patient seen on his behalf) Jessi Dolan May 22, 2016 11:30
[2016-05-22] MEDS: CIPROFLOXACIN 400 MG PREMIX 200 ML IV SCH (11:34)
[2016-05-22] MEDS: ONDANSETRON HCL 4 MG/2 ML VIAL IVP PRN ×2 (11:38→21:30)
[2016-05-22] MEDS: metroNIDAZOLE 500 MG INJ 100 ML IV SCH ×2 (13:04→20:14)
[2016-05-22] MEDS ORDERED: SIMETHICONE 80 MG CHEWABLE TAB CHEW PRN (16:30)
--- NOTE | 2016-05-22 16:51 | PD.CONS ---
HPI History of Present Illness This is a 85 year old female who was brought in with complaints of abdominal pain nausea and vomiting admission she had a CT of the abdomen performed and this showed possible ileal obstruction patient is currently doing much better painless nausea and vomiting prior to this episode she had no GI problems she denies any prior complaints of nausea vomiting diarrhea if anything she had constipation and she complained of bloating and being gassy he would take Pepto-Bismol milk of magnesia Mylanta she denies any change in appetite or weight loss although her diet has changed as a result of her inability to cope well with her advancing rheumatoid arthritis patient denies having had any endoscopy in the past PFSH Past Medical History 1. Rheumatoid Arthritis. 2. Hyperlipidemia. 3. History of tachycardia. 4. Hypertension. Past Surgical History PAST SURGICAL HISTORY Tonsillectomy. Coded Allergies: Motrin (Verified Allergy, Severe, 05/20/16) Medications 1. Fiber Con. 2. Calcium. 3. Fish oil. 4. Tenormin. 5. Zocor. 6. Methotrexate. 7. Zantac. 8. Vicoprofen. 9. Deltasone. Family History Noncontributory Social History denies any tobacco, alcohol or illicit drug use. Review of Systems ROS Review of systems Patient denies any headache dizziness blurry vision, denies any chest pain shortness of breath cough fever chills, Denies any palpitations or fatigue denies any polyuria dysuria hematuria, denies any numbness tingling or weakness, denies any skin rash pruritus or jaundice, denies any easy bruising or bleeding tendency, denies any recent change in mood GI Exam Vitals I&O Vital Signs Date Time Temp Pulse Resp B/P Pulse Ox O2 Delivery O2 Flow Rate FiO2 05/22/16 12:00 96.9 73 16 131/67 95 05/22/16 08:00 97.5 65 18 138/66 94 05/22/16 08:00 64 05/22/16 04:00 97.3 61 18 138/80 96 05/22/16 00:00 97.1 73 20 128/69 98 05/21/16 20:00 98.7 67 20 141/65 95 05/21/16 18:00 98.7 78 19 135/62 96 I/O 05/21/16 05/21/16 05/21/16 05/22/1605/22/17 3/3/17 07:00 15:00 23:00 07:00 15:00 23:00 Intake Total 1133 ml 0 ml 563 ml 141 ml 741 ml Output Total 100 ml 300 ml 300 ml Balance 1033 ml -300 ml 563 ml -159 ml 741 ml Intake Oral 0 ml 0 ml 0 ml 0 ml IV Total 1133 ml 563 ml 141 ml 741 ml Output Urine Total 200 ml 300 ml Gastric Drainage Total 100 ml 100 ml # Voids 6 1 # Bowel Movements 0 0 2 Imaging Last Impressions Abdomen X-Ray 05/21/16 0600 Signed Impressions: Service Date/Time: May 05:54 - CONCLUSION: 1. Persistent gaseous distention of small bowel similar to May 20. NG coiled in stomach. Jonathan Sandoval MD Abdomen/Pelvis CT 05/21/16 0000 Signed Impressions: Service Date/Time: May 17:02 - CONCLUSION: 1. We can now clearly identify an appendix therefore I do not believe chronic appendicitis is within the differential. The terminal ileum never distends and the small bowel proximal to that is quite distended raising the possibility of a terminal ileitis or conceivably chronic Crohn's disease. 2. More peritoneal fluid today than there was on the previous study. Rhett Henley MD Laboratory Test 05/22/16 04:15 White Blood Count 12.4 TH/MM3 Red Blood Count 4.21 MIL/MM3 Hemoglobin 12.0 GM/DL Hematocrit 36.3 % Mean Corpuscular Volume 86.1 FL Mean Corpuscular Hemoglobin 28.6 PG Mean Corpuscular Hemoglobin 33.2 % Concent Red Cell Distribution Width 16.0 % Platelet Count 357 TH/MM3 Mean Platelet Volume 8.1 FL Neutrophils (%) (Auto) 82.7 % Lymphocytes (%) (Auto) 7.5 % Monocytes (%) (Auto) 9.3 % Eosinophils (%) (Auto) 0.2 % Basophils (%) (Auto) 0.3 % Neutrophils # (Auto) 10.2 TH/MM3 Lymphocytes # (Auto) 0.9 TH/MM3 Monocytes # (Auto) 1.2 TH/MM3 Eosinophils # (Auto) 0.0 TH/MM3 Basophils # (Auto) 0.0 TH/MM3 CBC Comment DIFF FINAL Differential Comment Sodium Level 135 MEQ/L Potassium Level 4.0 MEQ/L Chloride Level 102 MEQ/L Carbon Dioxide Level 23.4 MEQ/L Anion Gap 10 MEQ/L Blood Urea Nitrogen 21 MG/DL Creatinine 1.10 MG/DL Estimat Glomerular Filtration 57 ML/MIN Rate Random Glucose 86 MG/DL Calcium Level 8.3 MG/DL Phosphorus Level 2.9 MG/DL Magnesium Level 2.5 MG/DL Physical Examination HEENT: Pupils round and reactive to light; normocephalic; atraumatic; no jaundice. Throat is clear. NECK: Neck is supple, no JVD, no lymphadenopathy. CHEST: Chest is clear to auscultation and percussion. CARDIAC: Regular rate and rhythm with no murmur gallop or rubs. ABDOMEN: Soft, mildly distended and mildly tender in the upper abdomen but no rebound or guarding no hepatosplenomegaly; bowel sounds are present in all four quadrants. EXTREMITIES: No clubbing, cyanosis, or edema. SKIN: Normal; no rash; no jaundice. GRANITE FABRICATOR: No focal deficits; alert and oriented times three. Assessment and Plan Plan Abdominal pain with nausea and vomiting with abnormal findings on CT suggestive of possible ileus versus obstruction Agree with current supportive care Monitor labs We'll obtain inflammatory markers We'll obtain small bowel follow-through Further recommendations shall depend on her hospital course Denny Rios MD May 22, 2016 16:51
[2016-05-22] MEDS ORDERED: DIATRIZOATE MEGLUM/DIATRIZOATE SOD 120 ML BTL (for RAD DIAG) PO ONE (19:15)
[2016-05-22] MEDS: MORPHINE SULFATE 4 MG/ML INJ IV PRN (20:15)
[2016-05-23] VITALS (7 sets, daily range): BP systolic 108–155; BP diastolic 55–66; PULSE 74–88; RESP 18–22; TEMP 95.9–98.8; O2SAT 95–98
[2016-05-23] MEDS: CIPROFLOXACIN 400 MG PREMIX 200 ML IV SCH ×2 (03:58→10:31)
[2016-05-23] MEDS: HEPARIN SODIUM - SQ 10,000 UNITS/ML VIAL SQ SCH ×2 (04:21→16:08)
[2016-05-23] MEDS: FAMOTIDINE 20 MG/2 ML VIAL IV SCH ×3 (04:21→13:23)
[2016-05-23 05:46] LABS: HEMATOCRIT 37.8 % (35.0-46.0); MEAN CELL VOLUME 87.6 FL (80.0-100.0); MEAN CORPUSCULAR HEMOGLOBIN 27.8 PG (27.0-34.0); MEAN CORPUSCULAR HGB CONC 31.7 % (32.0-36.0); PLATELET COUNT 380 TH/MM3 (150-450); RED BLOOD COUNT 4.31 MIL/MM3 (4.00-5.30); RED CELL DISTRIBUTION WIDTH 15.8 % (11.6-17.2); REVIEW FLAG FINAL
[2016-05-23 06:15] LABS: ANION GAP 11 MEQ/L (5-15); AST (GOT) 11 U/L (15-37); BICARBONATE 23.9 MEQ/L (21.0-32.0); BLOOD UREA NITROGEN 23 MG/DL (7-18); CHLORIDE 107 MEQ/L (98-107); GLOMERULAR FILTRATION RATE 49 ML/MIN (>89); POTASSIUM 3.8 MEQ/L (3.5-5.1); SODIUM (NA) 142 MEQ/L (136-145)
[2016-05-23 06:20] LABS: ALKALINE PHOSPHATASE 52 U/L (45-117); ALT (GPT) 11 U/L (10-53); TOTAL BILIRUBIN ADULT 0.4 MG/DL (0.2-1.0)
[2016-05-23] MEDS: metroNIDAZOLE 500 MG INJ 100 ML IV SCH ×4 (06:42→22:08)
[2016-05-23] MEDS: methylPREDNISolone SOD SUCC 40 MG/1 ML VIAL IV SCH (07:26)
[2016-05-23] MEDS: SODIUM CHLORIDE 0.9% FLUSH 5 ML FLUSH FLUSH SCH ×2 (07:26→22:08)
[2016-05-23] MEDS: PIPERACIL-TAZO 3.375 GM PREMIX 50 ML IV SCH ×3 (07:45→22:08)
--- NOTE | 2016-05-23 09:15 | RADRPT ---
EXAM DATE/TIME: 05/22/2016 17:33 [facility] COMPARISON: CT ABDOMEN & PELVIS W CONTRAST, May 20, 2016, 13:18. CT ABDOMEN & PELVIS W/O CONTRAST, May 21 017, 17:02. ABDOMEN KUB ONLY, May 21, 2016, 5:54. INDICATIONS : Evaluate for small bowel obstruction. Lower abdominal pain. Vomiting. FLUORO TIME: 0 minutes IMAGE COUNT: 15 CONTRAST: [facility] IMAGING TIME(S): 15 min, 30 min, 45 min, 1 hr, 2 hr, 4 hrs15 hr MEDICAL HISTORY : Early small bowel obstruction. SURGICAL HISTORY : None. ENCOUNTER: Initial ACUITY: 4 - 6 days PAIN SCORE: 8/10 LOCATION: Abdomen FINDINGS: Nutrition Services Associate views of the abdomen demonstrates dilated small bowel. There is little to no colonic gas visual ized. Bowel measures up to 4.9 cm. The amount of dilated small bowel is mildly increased compared to the 05/20/2016 exam. Gastrografin was administered orally. Serial images were obtained to follow the contrast throughout t he bowel. Early in the examination there is marked gastroesophageal reflux. At 4 hours and the examin ation the contrast has not reached the colon. A delayed image was obtained the following morning at a pproximately 15 hours and confirms that the contrast has passed into the colon. CONCLUSION: Abnormally dilated small bowel. Contrast reached the colon somewhere between 4 hours and 15 hours. Th is finding indicates a partial small bowel obstruction, likely in the distal small bowel due to the a mount of dilated small bowel present. Earl Carrington MD on May 23, 2016 at 9:09 Board Certified Radiologist. This report was verified electronically.
--- NOTE | 2016-05-23 09:51 | HHI.PR ---
Subjective Subjective Notes sitting up in chair, denies abdominal pain.. Has had BMs, aide at bedside says about every two hours she is cleaned up after small BMs. Patient hungry, wants liquids. Objective Vitals/I&O Vital Signs Date Time Temp Pulse Resp B/P Pulse Ox O2 Delivery O2 Flow Rate FiO2 05/23/16 08:00 96.6 74 20 108/55 96 05/20/16 17:00 Room Air Labs Laboratory Tests Test 05/23/16 04:18 White Blood Count 15.0 Red Blood Count 4.31 Hemoglobin 12.0 Hematocrit 37.8 Mean Corpuscular Volume 87.6 Mean Corpuscular Hemoglobin 27.8 Mean Corpuscular Hemoglobin 31.7 Concent Red Cell Distribution Width 15.8 Platelet Count 380 Mean Platelet Volume 8.3 Erythrocyte Sedimentation Rate 23 Sodium Level 142 Potassium Level 3.8 Chloride Level 107 Carbon Dioxide Level 23.9 Anion Gap 11 Blood Urea Nitrogen 23 Creatinine 1.27 Estimat Glomerular Filtration 49 Rate Random Glucose 91 Calcium Level 9.0 Total Bilirubin 0.4 Aspartate Amino Transf 11 (AST/SGOT) Alanine Aminotransferase 11 (ALT/SGPT) Alkaline Phosphatase 52 C-Reactive Protein 4.54 Total Protein 6.5 Albumin 2.8 Abdomen: Non-tender, Other (mild-mod distention vs protuberant abdomen, BS normal. Totally non tender.) A/P Assessment and Plan ? terminal ileitis on cipro flagyl, ? improved. Will order clears. Washington Salas MD May 23, 2016 09:51
[2016-05-23] MEDS: D5-1/2 NS + KCL 20 MEQ INJ 1,000 ML IV SCH ×2 (09:56→22:13)
--- NOTE | 2016-05-23 14:45 | HHI.PR ---
Subjective Remarks 85 yr old female seen and examined today. Lying in bedr, denies abdominal pain. Has had BMs. Started on clear liquid diet by surgery: pt is able to tolerate it. Family in room. Objective Objective Results - Vital Signs Date Time Temp Pulse Resp B/P Pulse Ox O2 Delivery O2 Flow Rate FiO2 05/23/16 12:00 95.9 87 18 108/56 95 05/23/16 08:00 96.6 74 20 108/55 96 05/23/16 04:00 97.2 80 22 125/65 98 05/23/16 00:00 97.7 88 22 155/65 97 05/22/16 20:00 97.2 82 24 137/79 95 05/22/16 19:45 85 05/22/16 16:00 97.4 78 18 121/78 98 I/O 05/22/16 05/22/16 05/22/16 05/23/16 05/23/16 05/23/16 07:00 15:00 23:00 07:00 15:00 23:00 Intake Total 141 ml 741 ml 200 ml 0 ml Output Total 300 ml Balance -159 ml 741 ml 200 ml 0 ml Intake Oral 0 ml 0 ml 0 ml 0 ml IV Total 141 ml 741 ml 200 ml Output Urine Total 300 ml # Voids 4 2 3 # Bowel Movements 2 4 2 3 Result Diagram: 05/23/16 0418 05/23/16 0418 Other Results Laboratory Tests Test 05/23/16 04:18 White Blood Count 15.0 Red Blood Count 4.31 Hemoglobin 12.0 Hematocrit 37.8 Mean Corpuscular Volume 87.6 Mean Corpuscular Hemoglobin 27.8 Mean Corpuscular Hemoglobin 31.7 Concent Red Cell Distribution Width 15.8 Platelet Count 380 Mean Platelet Volume 8.3 Erythrocyte Sedimentation Rate 23 Sodium Level 142 Potassium Level 3.8 Chloride Level 107 Carbon Dioxide Level 23.9 Anion Gap 11 Blood Urea Nitrogen 23 Creatinine 1.27 Estimat Glomerular Filtration 49 Rate Random Glucose 91 Calcium Level 9.0 Total Bilirubin 0.4 Aspartate Amino Transf 11 (AST/SGOT) Alanine Aminotransferase 11 (ALT/SGPT) Alkaline Phosphatase 52 C-Reactive Protein 4.54 Total Protein 6.5 Albumin 2.8 ROS General: Weakness HEENT: No: Sore Throat, Dysphagia, Other Cardiac: No: Chest Pain, Edema, Palpitations, Other Pulmonary: No: Cough, SOB, Wheezing, Other GI: No: Abdominal Pain, BM, Diarrhea, N/V, Other /ALL SOURCE ANALYST: No: Dysuria, Urgency, Other Neuro/MS: No: Lightheaded, Confusion, Other Psych: No: Anxiety, Depression, Other Skin: No: Itching, Rash, Other Physical Exam Physical Exam PHYSICAL EXAMINATION GENERAL: This is a well-developed, well-nourished female who appears to be in no acute distress. She is alert and awake. HEAD: Normocephalic without any lesion or mass noted. Facial features appear symmetric. EYES: Perrla, Normal eye movement. OROPHARYNGEAL: Oropharynx without erythema or edema. MOUTH/THROAT: Buccal mucosa is moist NECK: Supple. No nuchal rigidity or lymphadenopathy. Trachea midline without deviation. Thyroid not palpable, no bruits appreciated. CARDIAC: Regular rhythm, regular rate, S1 and S2 are heard. LUNGS: Clear to auscultation bilaterally. No wheezes/rhonchi. ABDOMEN: Soft, nontender, mild-mod distension. Bowel sounds are heard in all four quadrants. No rebound. No guarding. EXTREMITIES: no edema. Pulses equal bilateral. NEUROLOGICAL: No fiacl deficits. SKIN:Warm and moist PSYCH: Mood and affect appropriate A/P Assessment and Plan 1. Small bowel obstruction. 2. Ileus 3. Leukocytosis. 4. Renal insufficiency. 5. Mild protein calorie malnutrition. 6. Abdominal pain. 7. Nausea and vomiting. 8. Hypertension. Management: Appreciate general sugery input. Off NG tube. Started clear lquid diet. Continue cipro.flagyl VTE prophylaxis with heparin. Peptic ulcer disease prophylaxis with Pepcid IV. Acute kidney injury mildly improved, gentle hydration. Labs reviewed, afebrile BP stable. Physical therapy to get patient out of bed and work with her mobility. Am labs. Discussed with patient.Family/RN. Discussed With: Nurse, Family (patient), Other (dr. lynn, patient seen on his behalf) Pamela Zhou MD May 23, 2016 14:44 Pamela Zhou MD May 23, 2016 14:44
[2016-05-23] MEDS: MORPHINE SULFATE 4 MG/ML INJ IV PRN (15:01)
[2016-05-24] VITALS (7 sets, daily range): BP systolic 109–128; BP diastolic 53–72; PULSE 60–89; RESP 16–20; TEMP 97.3–98.5; O2SAT 95–98
[2016-05-24] MEDS: FAMOTIDINE 20 MG/2 ML VIAL IV SCH (01:06)
[2016-05-24] MEDS: CIPROFLOXACIN 400 MG PREMIX 200 ML IV SCH ×2 (01:07→13:08)
[2016-05-24] MEDS: metroNIDAZOLE 500 MG INJ 100 ML IV SCH ×2 (05:19→13:11)
[2016-05-24] MEDS: HEPARIN SODIUM - SQ 10,000 UNITS/ML VIAL SQ SCH (05:58)
[2016-05-24] MEDS: PIPERACIL-TAZO 3.375 GM PREMIX 50 ML IV SCH ×2 (06:46→13:10)
[2016-05-24 07:11] LABS: AUTOMATED NEUTROPHIL # 10.9 TH/MM3 (1.8-7.7); BASOPHIL % 0.3 % (0.0-2.0); EOSINOPHIL % 0.3 % (0.0-4.0); HEMATOCRIT 36.4 % (35.0-46.0); HEMO FLAGS DIFF FINAL; LYMPHOCYTE # 1.2 TH/MM3 (1.0-4.8); MEAN CELL VOLUME 88.1 FL (80.0-100.0); MEAN CORPUSCULAR HGB CONC 31.8 % (32.0-36.0); MONO % 10.4 % (0.0-8.0); PLATELET COUNT 339 TH/MM3 (150-450); RED BLOOD COUNT 4.14 MIL/MM3 (4.00-5.30); RED CELL DISTRIBUTION WIDTH 15.9 % (11.6-17.2); WHITE BLOOD COUNT 13.6 TH/MM3 (4.0-11.0)
[2016-05-24 07:19] LABS: BICARBONATE 21.7 MEQ/L (21.0-32.0); POTASSIUM 3.6 MEQ/L (3.5-5.1)
--- NOTE | 2016-05-24 10:07 | HHI.PR ---
Subjective Subjective Notes denies any abdominal pain today, tolerating liquids, multiple BMs Objective Vitals/I&O Vital Signs Date Time Temp Pulse Resp B/P Pulse Ox O2 Delivery O2 Flow Rate FiO2 05/24/16 04:33 97.5 73 20 127/72 95 05/20/16 17:00 Room Air Labs Laboratory Tests Test 05/24/16 06:08 White Blood Count 13.6 Red Blood Count 4.14 Hemoglobin 11.6 Hematocrit 36.4 Mean Corpuscular Volume 88.1 Mean Corpuscular Hemoglobin 28.0 Mean Corpuscular Hemoglobin 31.8 Concent Red Cell Distribution Width 15.9 Platelet Count 339 Mean Platelet Volume 8.2 Neutrophils (%) (Auto) 80.0 Lymphocytes (%) (Auto) 9.0 Monocytes (%) (Auto) 10.4 Eosinophils (%) (Auto) 0.3 Basophils (%) (Auto) 0.3 Neutrophils # (Auto) 10.9 Lymphocytes # (Auto) 1.2 Monocytes # (Auto) 1.4 Eosinophils # (Auto) 0.0 Basophils # (Auto) 0.0 CBC Comment DIFF FINAL Differential Comment Sodium Level 138 Potassium Level 3.6 Chloride Level 105 Carbon Dioxide Level 21.7 Anion Gap 11 Blood Urea Nitrogen 26 Creatinine 1.23 Estimat Glomerular Filtration 50 Rate Random Glucose 94 Calcium Level 8.5 Cardiovascular: Regular Lungs: Clear Abdomen: Non-tender, BS normal Narrative Exam abdomen less distended, nontender, BS present A/P Assessment and Plan 85 year old with SBO vs ileus - ?terminal ileitits by CT Advance diet today and observe -Out of bed and mobilize I certify and attest that I personally examined this patient and reviewed her findings in the EMR. Ms Reyes is documenting our encounter on my behalf and entered orders under my direct supervision. I discussed our recommendations with the patient and family at the bedside. I also discussed our encounter with the nursing staff present. Saman Sheth MD, FACS, MD May 24, 2016 10:07
--- NOTE | 2016-05-24 10:51 | HHI.GIFU ---
Subjective Remarks Resting in bed. No n/v. Occasional mild gas discomfort, but no abdominal pain. Multiple loose bowel movements overnight. (Chantale Yates) Objective Vitals I&O Vital Signs Date Time Temp Pulse Resp B/P Pulse Ox O2 Delivery O2 Flow Rate FiO2 05/24/16 08:00 98.3 83 18 109/53 98 05/24/16 04:33 97.5 73 20 127/72 95 05/24/16 00:00 97.8 75 20 121/68 97 05/23/16 20:00 97.8 84 20 146/66 97 05/23/16 16:00 98.8 86 20 141/62 97 05/23/16 15:06 18 05/23/16 12:00 95.9 87 18 108/56 95 I/O 05/23/16 05/23/16 05/23/16 05/24/16 05/24/16 05/24/16 07:00 15:00 23:00 07:00 15:00 23:00 Intake Total 0 ml 1439 ml 270 ml 1152 ml Balance 0 ml 1439 ml 270 ml 1152 ml Intake Oral 0 ml 800 ml 120 ml 120 ml IV Total 639 ml 150 ml 1032 ml # Voids 3 4 1 1 # Bowel Movements 3 2 2 Laboratory Laboratory Tests Test 05/24/16 06:08 White Blood Count 13.6 Red Blood Count 4.14 Hemoglobin 11.6 Hematocrit 36.4 Mean Corpuscular Volume 88.1 Mean Corpuscular Hemoglobin 28.0 Mean Corpuscular Hemoglobin 31.8 Concent Red Cell Distribution Width 15.9 Platelet Count 339 Mean Platelet Volume 8.2 Neutrophils (%) (Auto) 80.0 Lymphocytes (%) (Auto) 9.0 Monocytes (%) (Auto) 10.4 Eosinophils (%) (Auto) 0.3 Basophils (%) (Auto) 0.3 Neutrophils # (Auto) 10.9 Lymphocytes # (Auto) 1.2 Monocytes # (Auto) 1.4 Eosinophils # (Auto) 0.0 Basophils # (Auto) 0.0 CBC Comment DIFF FINAL Differential Comment Sodium Level 138 Potassium Level 3.6 Chloride Level 105 Carbon Dioxide Level 21.7 Anion Gap 11 Blood Urea Nitrogen 26 Creatinine 1.23 Estimat Glomerular Filtration 50 Rate Random Glucose 94 Calcium Level 8.5 Imaging Last Impressions Small Bowel X-Ray 05/22/16 0000 Signed Impressions: Service Date/Time: Sunday, May 22, 2016 17:33 - CONCLUSION: Abnormally dilated small bowel. Contrast reached the colon somewhere between 4 hours and 15 hours. This finding indicates a partial small bowel obstruction, likely in the distal small bowel due to the amount of dilated small bowel present. Earl Carrington MD Abdomen X-Ray 05/21/16 0600 Signed Impressions: Service Date/Time: May 05:54 - CONCLUSION: 1. Persistent gaseous distention of small bowel similar to May 20. NG coiled in stomach. Jonathan Sandoval MD Abdomen/Pelvis CT 05/21/16 0000 Signed Impressions: Service Date/Time: May 17:02 - CONCLUSION: 1. We can now clearly identify an appendix therefore I do not believe chronic appendicitis is within the differential. The terminal ileum never distends and the small bowel proximal to that is quite distended raising the possibility of a terminal ileitis or conceivably chronic Crohn's disease. 2. More peritoneal fluid today than there was on the previous study. Rhett Henley MD Physical Exam HEENT: Normocephalic; atraumatic; no jaundice. CHEST: CTA CARDIAC: RRR ABDOMEN: Soft, mildly distended, nontender; no hepatosplenomegaly; bowel sounds are present in all four quadrants. EXTREMITIES: No clubbing, cyanosis, or edema. SKIN: Normal; no rash; no jaundice. VOLUNTEER MANAGER: No focal deficits; alert and oriented times three. (Chantale Yates [facility]) Assessment and Plan Plan ASSESSMENT: - Abdominal pain with nausea and vomiting with abnormal findings on CT suggestive of possible ileus versus obstruction. Abdomen/Pelvis CT (05/21/16)--- > 1. We can now clearly identify an appendix therefore I do not believe chronic appendicitis is within the differential. The terminal ileum never distends and the small bowel proximal to that is quite distended raising the possibility of a terminal ileitis or conceivably chronic Crohn's disease. 2. More peritoneal fluid today than there was on the previous study. Small Bowel X-Ray (05/22/16)----> Abnormally dilated small bowel. Contrast reached the colon somewhere between 4 hours and 15 hours. This finding indicates a partial small bowel obstruction, likely in the distal small bowel due to the amount of dilated small bowel present. SED Rate 23. Clinically, much improved. She is tolerating clears. Multiple loose stools overnight. Only occasional mild gas discomfort. No n/v. GS following. Clinically improving. Diet advanced. PLAN: - Plan for colonoscopy with terminal ileum intubation in am - Obtain consents - Clear liquids - NPO after MN - Hold heparin after MN - Golytely prep - Cont. Abx - Cont. Solumedrol - Cont. Simethicone prn - Supportive care - Further recommendations to follow based on results of above - Pt seen and examined by Dr. Rios and myself and this note is written on his behalf (Chantale Yates) Physician Comments Patient Seen and examined Agree with above Continue with current supportive care Monitor labs Colonoscopy with terminal ileal intubation tomorrow (Denny Rios MD) Chantale Yates May 24, 2016 10:51 Denny Rios MD May 24, 2016 18:35
[2016-05-24] MEDS: methylPREDNISolone SOD SUCC 40 MG/1 ML VIAL IV SCH (13:08)
[2016-05-24] MEDS: D5-1/2 NS + KCL 20 MEQ INJ 1,000 ML IV SCH (13:11)
--- NOTE | 2016-05-24 15:10 | HHI.PR ---
Subjective Subjective Remarks No n/v abd. distended, non tender having liquid stools no cp no sob daughter at bsd, multiple questions, adamant that pt. doesn't get asked for consents and no surgical interventions Review of Systems Constitutional Constitutional Remarks 12 point ROS completed, limited Vitals/Results Intake & Output 05/23/16 05/23/16 05/24/16 15:00 23:00 07:00 Intake Total 1439 ml 270 ml 1152 ml Balance 1439 ml 270 ml 1152 ml Intake Oral 800 ml 120 ml 120 ml IV Total 639 ml 150 ml 1032 ml # Voids 4 1 1 # Bowel Movements 2 2 Vital Signs Vital Signs Date Time Temp Pulse Resp B/P Pulse Ox O2 Delivery O2 Flow Rate FiO2 05/24/16 12:00 98.4 74 16 110/62 97 05/24/16 08:00 98.3 83 18 109/53 98 05/24/16 04:33 97.5 73 20 127/72 95 05/24/16 00:00 97.8 75 20 121/68 97 05/23/16 20:00 97.8 84 20 146/66 97 05/23/16 16:00 98.8 86 20 141/62 97 05/23/16 15:06 18 CBC/BMP: 05/24/16 0608 05/24/16 0608 Lab Results Laboratory Tests Test 05/24/16 06:08 White Blood Count 13.6 TH/MM3 Red Blood Count 4.14 MIL/MM3 Hemoglobin 11.6 GM/DL Hematocrit 36.4 % Mean Corpuscular Volume 88.1 FL Mean Corpuscular Hemoglobin 28.0 PG Mean Corpuscular Hemoglobin 31.8 % Concent Red Cell Distribution Width 15.9 % Platelet Count 339 TH/MM3 Mean Platelet Volume 8.2 FL Neutrophils (%) (Auto) 80.0 % Lymphocytes (%) (Auto) 9.0 % Monocytes (%) (Auto) 10.4 % Eosinophils (%) (Auto) 0.3 % Basophils (%) (Auto) 0.3 % Neutrophils # (Auto) 10.9 TH/MM3 Lymphocytes # (Auto) 1.2 TH/MM3 Monocytes # (Auto) 1.4 TH/MM3 Eosinophils # (Auto) 0.0 TH/MM3 Basophils # (Auto) 0.0 TH/MM3 CBC Comment DIFF FINAL Differential Comment Sodium Level 138 MEQ/L Potassium Level 3.6 MEQ/L Chloride Level 105 MEQ/L Carbon Dioxide Level 21.7 MEQ/L Anion Gap 11 MEQ/L Blood Urea Nitrogen 26 MG/DL Creatinine 1.23 MG/DL Estimat Glomerular Filtration 50 ML/MIN Rate Random Glucose 94 MG/DL Calcium Level 8.5 MG/DL Physical Exam General General Appearance: Well Developed, No Acute Distress, Comfortable Eyes Eye Exam: Pupils Equal, Pupils Reactive Ears & Nose Ears & Nose Exam: Nasal Mucosa [place] Throat Throat Exam: Oral Mucosa [place] & Moist Neck Neck Exam: Neck Supple, Trachea Midline Pulmonary Resp Exam: Breath Sounds Equal, No Distress Cardiology CV Exam: Regular Gastrointestinal/Abdomen GI Exam: Non-Tender, Positive Bowel Movement, Non-Distended, Bowel Sounds Hyperactive Musculoskeletal MS Exam: Joints Intact Integumentary Skin Exam: Warm, Dry Extremeties Extremities Exam: No Edema, Pedal Pulses Palpable Neurologic Neuro Exam: Alert, Awake, Speech Clear, No Focal Deficits Psychiatric Psych Exam: Appropriate Responses VTE Prophylaxis VTE Prophylaxis Device: SCDs VTE Prophylaxis Meds: Heparin PUD Prophylasis PUD Remarks Pepcid Assessment/Plan Problem List: (1) Small bowel obstruction (2) Abdominal pain (3) Leukocytosis (4) HTN (hypertension) (5) Intractable vomiting (6) Renal insufficiency Assessment/Plan appreciate surgical input-continue with conservative management imaging studies reviewed No NGT tolerating clear liquid diet well GI series, partial SBO Appreciate GI input- Plan for colonoscopy with terminal ileum intubation in am bowel prep in progress Clear liquid diet continue Solumedrol IV Simethicone Abx Pepcid Monitor renal function, improving cautious hydration PT for eval and tx OOB with assist Labs in am D/W pt, family D/W Dr. Zhou D/W RN This patient was seen by myself and Dr. Zhou, this note is written on her behalf Problem Qualifiers (1) Abdominal pain: Qualified Code: R10.33 - Periumbilical abdominal pain (2) Leukocytosis: Qualified Code: D72.829 - Leukocytosis, unspecified type (3) HTN (hypertension): Qualified Code: I10 - Essential hypertension (4) Intractable vomiting: Qualified Code: R11.10 - Intractable vomiting, presence of nausea not specified , unspecified vomiting type Lynette Reynoso May 24, 2016 15:10
[2016-05-24] MEDS ORDERED: PEG (High)/E-LYTE SOLN 4000 ML BTL PO ONE (16:00)
[2016-05-25] MEDS: FAMOTIDINE 20 MG/2 ML VIAL IV SCH ×2 (00:12→14:39)
[2016-05-25] MEDS: PIPERACIL-TAZO 3.375 GM PREMIX 50 ML IV SCH ×4 (00:13→23:51)
[2016-05-25] MEDS: metroNIDAZOLE 500 MG INJ 100 ML IV SCH ×4 (00:13→23:54)
[2016-05-25] MEDS: SODIUM CHLORIDE 0.9% FLUSH 5 ML FLUSH FLUSH SCH ×3 (00:13→23:46)
[2016-05-25] MEDS: D5-1/2 NS + KCL 20 MEQ INJ 1,000 ML IV SCH ×3 (00:18→22:38)
[2016-05-25 02:10] VITALS: BP 107/54; PULSE 98; RESP 18; TEMP 98.8; O2SAT 97
[2016-05-25] MEDS: CIPROFLOXACIN 400 MG PREMIX 200 ML IV SCH ×3 (02:15→23:54)
[2016-05-25 04:00] VITALS: BP 116/70; PULSE 90; RESP 20; TEMP 98.3; O2SAT 97
[2016-05-25 06:23] LABS: HEMATOCRIT 36.9 % (35.0-46.0); MEAN CELL VOLUME 88.1 FL (80.0-100.0); MEAN CORPUSCULAR HEMOGLOBIN 28.6 PG (27.0-34.0); MEAN CORPUSCULAR HGB CONC 32.4 % (32.0-36.0); PLATELET COUNT 325 TH/MM3 (150-450); RED BLOOD COUNT 4.18 MIL/MM3 (4.00-5.30); RED CELL DISTRIBUTION WIDTH 16.3 % (11.6-17.2); REVIEW FLAG FINAL
[2016-05-25 06:34] LABS: BICARBONATE 18.9 MEQ/L (21.0-32.0); POTASSIUM 3.9 MEQ/L (3.5-5.1)
[2016-05-25 08:00] VITALS: BP 121/55; PULSE 77; RESP 16; TEMP 97.5; O2SAT 100
[2016-05-25] MEDS: methylPREDNISolone SOD SUCC 40 MG/1 ML VIAL IV SCH (08:10)
--- NOTE | 2016-05-25 10:25 | HHI.PR ---
Subjective Subjective Remarks awake, oriented x 3 pleasant No n/v abd. distended, non tender no stools today no cp no sob no family at bsd Review of Systems Constitutional Constitutional Remarks 12 point ROS completed, limited Vitals/Results Intake & Output 05/24/16 05/24/16 05/25/16 15:00 23:00 07:00 Intake Total 800 ml 720 ml 1011 ml Balance 800 ml 720 ml 1011 ml Intake Oral 800 ml 720 ml 0 ml IV Total 1011 ml # Voids 6 1 4 # Bowel Movements 6 1 4 Vital Signs Vital Signs Date Time Temp Pulse Resp B/P Pulse Ox O2 Delivery O2 Flow Rate FiO2 05/25/16 08:00 97.5 77 16 121/55 100 05/25/16 04:00 98.3 90 20 116/70 97 05/25/16 02:10 98.8 98 18 107/54 97 05/24/16 22:30 89 05/24/16 20:00 98.5 60 20 116/61 97 05/24/16 16:00 97.3 82 18 128/64 96 05/24/16 12:00 98.4 74 16 110/62 97 CBC/BMP: 05/25/16 0530 05/25/16 0530 Lab Results Laboratory Tests Test 05/25/16 05:30 White Blood Count 14.0 TH/MM3 Red Blood Count 4.18 MIL/MM3 Hemoglobin 12.0 GM/DL Hematocrit 36.9 % Mean Corpuscular Volume 88.1 FL Mean Corpuscular Hemoglobin 28.6 PG Mean Corpuscular Hemoglobin 32.4 % Concent Red Cell Distribution Width 16.3 % Platelet Count 325 TH/MM3 Mean Platelet Volume 8.0 FL Sodium Level 140 MEQ/L Potassium Level 3.9 MEQ/L Chloride Level 110 MEQ/L Carbon Dioxide Level 18.9 MEQ/L Anion Gap 11 MEQ/L Blood Urea Nitrogen 20 MG/DL Creatinine 1.04 MG/DL Estimat Glomerular Filtration 61 ML/MIN Rate Random Glucose 102 MG/DL Calcium Level 8.4 MG/DL Physical Exam General General Appearance: Well Developed, No Acute Distress, Comfortable Eyes Eye Exam: Pupils Equal, Pupils Reactive Ears & Nose Ears & Nose Exam: Nasal Mucosa [place] Throat Throat Exam: Oral Mucosa [place] & Moist Neck Neck Exam: Neck Supple, Trachea Midline Pulmonary Resp Exam: Breath Sounds Equal, No Distress Cardiology CV Exam: Regular Gastrointestinal/Abdomen GI Exam: Non-Tender, Positive Bowel Movement, Non-Distended, Bowel Sounds Hypoactive Musculoskeletal MS Exam: Joints Intact Integumentary Skin Exam: Warm, Dry Extremeties Extremities Exam: No Edema, Pedal Pulses Palpable Neurologic Neuro Exam: Alert, Awake, Speech Clear, No Focal Deficits Psychiatric Psych Exam: Appropriate Responses VTE Prophylaxis VTE Prophylaxis Device: SCDs VTE Prophylaxis Meds: Heparin PUD Prophylasis PUD Remarks Pepcid Assessment/Plan Problem List: (1) Small bowel obstruction (2) Abdominal pain (3) Leukocytosis (4) HTN (hypertension) (5) Intractable vomiting (6) Renal insufficiency Assessment/Plan appreciate surgical input-continue with conservative management imaging studies reviewed No NGT GI series, partial SBO Appreciate GI input- Plan for colonoscopy with terminal ileum intubation today NPO continue Solumedrol IV Simethicone Abx Pepcid Monitor renal function, improving cautious hydration PT for eval and tx OOB with assist Labs reviewed, WBC mildly elevated, sec. steroids renal function stable f/u after procedure D/W pt D/W Dr. Trujillo D/W RN This patient was seen by myself and Dr. Trujillo, this note is written on her behalf Problem Qualifiers (1) Abdominal pain: Qualified Code: R10.33 - Periumbilical abdominal pain (2) Leukocytosis: Qualified Code: D72.829 - Leukocytosis, unspecified type (3) HTN (hypertension): Qualified Code: I10 - Essential hypertension (4) Intractable vomiting: Qualified Code: R11.10 - Intractable vomiting, presence of nausea not specified , unspecified vomiting type Lynette Reynoso May 25, 2016 10:25
[2016-05-25] MEDS ORDERED: PROPOFOL 200 MG/20 ML AMP IV ONE (12:29)
--- NOTE | 2016-05-25 12:52 | HHI.GIFU ---
Subjective Remarks feels ok, no new complains, tolerated prep. Objective Vitals I&O Vital Signs Date Time Temp Pulse Resp B/P Pulse Ox O2 Delivery O2 Flow Rate FiO2 05/25/16 08:00 97.5 77 16 121/55 100 05/25/16 04:00 98.3 90 20 116/70 97 05/25/16 02:10 98.8 98 18 107/54 97 05/24/16 22:30 89 05/24/16 20:00 98.5 60 20 116/61 97 05/24/16 16:00 97.3 82 18 128/64 96 I/O 05/24/16 05/24/16 05/24/16 05/25/16 05/25/16 05/25/16 07:00 15:00 23:00 07:00 15:00 23:00 Intake Total 1152 ml 800 ml 720 ml 1011 ml Balance 1152 ml 800 ml 720 ml 1011 ml Intake Oral 120 ml 800 ml 720 ml 0 ml IV Total 1032 ml 1011 ml # Voids 1 6 1 4 # Bowel Movements 2 6 1 4 Laboratory Laboratory Tests Test 05/25/16 05:30 White Blood Count 14.0 Red Blood Count 4.18 Hemoglobin 12.0 Hematocrit 36.9 Mean Corpuscular Volume 88.1 Mean Corpuscular Hemoglobin 28.6 Mean Corpuscular Hemoglobin 32.4 Concent Red Cell Distribution Width 16.3 Platelet Count 325 Mean Platelet Volume 8.0 Sodium Level 140 Potassium Level 3.9 Chloride Level 110 Carbon Dioxide Level 18.9 Anion Gap 11 Blood Urea Nitrogen 20 Creatinine 1.04 Estimat Glomerular Filtration 61 Rate Random Glucose 102 Calcium Level 8.4 Physical Exam HEENT: Normocephalic; atraumatic; no jaundice. CHEST: CTA CARDIAC: RRR ABDOMEN: Soft, mildly distended, nontender; no hepatosplenomegaly; bowel sounds are present in all four quadrants. EXTREMITIES: No clubbing, cyanosis, or edema. SKIN: Normal; no rash; no jaundice. CHIEF MINISTER: No focal deficits; alert and oriented times three. Assessment and Plan Plan ASSESSMENT: - Abdominal pain with nausea and vomiting with abnormal findings on CT suggestive of possible ileus versus obstruction. Abdomen/Pelvis CT (05/21/16)--- > 1. We can now clearly identify an appendix therefore I do not believe chronic appendicitis is within the differential. The terminal ileum never distends and the small bowel proximal to that is quite distended raising the possibility of a terminal ileitis or conceivably chronic Crohn's disease. 2. More peritoneal fluid today than there was on the previous study. Small Bowel X-Ray (05/22/16)----> Abnormally dilated small bowel. Contrast reached the colon somewhere between 4 hours and 15 hours. This finding indicates a partial small bowel obstruction, likely in the distal small bowel due to the amount of dilated small bowel present. SED Rate 23. Clinically, much improved. She is tolerating clears. Multiple loose stools overnight. Only occasional mild gas discomfort. No n/v. GS following. Clinically improving. Diet advanced. 04-27-16 doing well, no abdominal pain, colonoscopy showed normal terminal ileum, small polyp in cecum and sigmoid removed by snare, O/W normal exam except hemorrhoids. PLAN: - Clear liquids advance as tolerated - resume heparin in 12 hours - Golytely prep - Cont. Abx - Cont. Simethicone prn - no sign of Crohn's, capsule endoscopy as outpatient maybe helpful Nirmala Izquierdo MD May 25, 2016 12:52
[2016-05-25 16:00] VITALS: BP 129/57; PULSE 83; RESP 17; TEMP 98.1; O2SAT 98
[2016-05-25 20:35] VITALS: BP 124/61; PULSE 92; RESP 18; TEMP 98.4; O2SAT 94
[2016-05-26 00:22] VITALS: BP 110/67; PULSE 93; RESP 17; TEMP 96.5; O2SAT 97
[2016-05-26] MEDS: FAMOTIDINE 20 MG/2 ML VIAL IV SCH ×4 (02:57→23:44)
[2016-05-26 04:00] VITALS: BP 107/61; PULSE 74; RESP 18; TEMP 96.8; O2SAT 98
[2016-05-26 08:00] VITALS: BP 150/68; PULSE 80; RESP 17; TEMP 95.5; O2SAT 96
[2016-05-26] MEDS: PIPERACIL-TAZO 3.375 GM PREMIX 50 ML IV SCH (08:50)
[2016-05-26] MEDS: metroNIDAZOLE 500 MG INJ 100 ML IV SCH ×3 (08:50→23:41)
[2016-05-26] MEDS: SODIUM CHLORIDE 0.9% FLUSH 5 ML FLUSH FLUSH SCH ×2 (08:51→21:00)
[2016-05-26] MEDS: methylPREDNISolone SOD SUCC 40 MG/1 ML VIAL IV SCH (08:51)
[2016-05-26 12:00] VITALS: BP 113/57; PULSE 76; RESP 17; TEMP 99; O2SAT 98
[2016-05-26] MEDS: CIPROFLOXACIN 400 MG PREMIX 200 ML IV SCH ×3 (12:00→23:42)
--- NOTE | 2016-05-26 13:27 | HHI.PR ---
Subjective Subjective Notes Resting in bed No complaints Objective Vitals/I&O Vital Signs Date Time Temp Pulse Resp B/P Pulse Ox O2 Delivery O2 Flow Rate FiO2 05/26/16 12:00 99.0 76 17 113/57 98 Cardiovascular: Regular Lungs: Clear Abdomen: Non-distended, Non-tender Extremities: No edema A/P Assessment and Plan 85 year old with SBO vs ileus -Advance to regular diet as tolerated -CT abd/pelvis to shows possible terminal ileitis -Cirpo/Flagyl -Out of bed and mobilize -No surgical intervention required -GS will sign off I CERTIFY AND ATTEST THAT I PERSONALLY EXAMINED THIS PATIENT. MS REYES DOCUMENTED OUR VISIT AND ENTERED ORDERS IN THE EMR UNDER MY DIRECT SUPERVISION. I DISCUSSED THE CARE PLAN WITH THE NURSING STAFF AND FAMILY (IF PRESENT). ISAAC GARZA MD [facility] Queta Reyes May 26, 2016 13:27 Isaac Garza MD May 28, 2016 11:48
--- NOTE | 2016-05-26 15:37 | HHI.GIFU ---
Subjective Remarks Tolerating diet. No n/v. No abdominal pain. + BM. Objective Vitals I&O Vital Signs Date Time Temp Pulse Resp B/P Pulse Ox O2 Delivery O2 Flow Rate FiO2 05/26/16 12:00 99.0 76 17 113/57 98 05/26/16 08:00 95.5 80 17 150/68 96 05/26/16 04:00 96.8 74 18 107/61 98 05/26/16 00:22 96.5 93 17 110/67 97 05/25/16 20:35 98.4 92 18 124/61 94 05/25/16 16:00 98.1 83 17 129/57 98 I/O 05/25/16 05/25/16 05/25/16 05/26/16 05/26/16 05/26/16 07:00 15:00 23:00 07:00 15:00 23:00 Intake Total 1011 ml 500 ml 280 ml 700 ml 240 ml Output Total 500 ml 600 ml Balance 1011 ml 0 ml 280 ml 700 ml -360 ml Intake Oral 0 ml 0 ml 280 ml 240 ml IV Total 1011 ml 700 ml Other 500 ml Output Urine Total 500 ml 600 ml # Voids 4 1 # Bowel Movements 4 2 1 2 Imaging Last Impressions Small Bowel X-Ray 05/22/16 0000 Signed Impressions: Service Date/Time: Sunday, May 22, 2016 17:33 - CONCLUSION: Abnormally dilated small bowel. Contrast reached the colon somewhere between 4 hours and 15 hours. This finding indicates a partial small bowel obstruction, likely in the distal small bowel due to the amount of dilated small bowel present. Earl Carrington MD Abdomen X-Ray 05/21/16 0600 Signed Impressions: Service Date/Time: May 05:54 - CONCLUSION: 1. Persistent gaseous distention of small bowel similar to May 20. NG coiled in stomach. Jonathan Sandoval MD Abdomen/Pelvis CT 05/21/16 0000 Signed Impressions: Service Date/Time: May 17:02 - CONCLUSION: 1. We can now clearly identify an appendix therefore I do not believe chronic appendicitis is within the differential. The terminal ileum never distends and the small bowel proximal to that is quite distended raising the possibility of a terminal ileitis or conceivably chronic Crohn's disease. 2. More peritoneal fluid today than there was on the previous study. Rhett Henley MD Physical Exam HEENT: Normocephalic; atraumatic; no jaundice. CHEST: CTA CARDIAC: RRR ABDOMEN: Soft, mildly distended, nontender; no hepatosplenomegaly; bowel sounds are present in all four quadrants. EXTREMITIES: No clubbing, cyanosis, or edema. SKIN: Normal; no rash; no jaundice. LOAN CLERK: No focal deficits; alert and oriented times three. Assessment and Plan Plan ASSESSMENT: - Abdominal pain with nausea and vomiting with abnormal findings on CT suggestive of possible ileus versus obstruction. Abdomen/Pelvis CT (05/21/16)--- > 1. We can now clearly identify an appendix therefore I do not believe chronic appendicitis is within the differential. The terminal ileum never distends and the small bowel proximal to that is quite distended raising the possibility of a terminal ileitis or conceivably chronic Crohn's disease. 2. More peritoneal fluid today than there was on the previous study. Small Bowel X-Ray (05/22/16)----> Abnormally dilated small bowel. Contrast reached the colon somewhere between 4 hours and 15 hours. This finding indicates a partial small bowel obstruction, likely in the distal small bowel due to the amount of dilated small bowel present. SED Rate 23. S/P Colonoscopy (05/25/16)----> Small polyp in the cecum removed by snare, small polyp in the sigmoid removed by snare, the colon mucosa was otherwise normal retroflexed views revealed small internal hemorrhoids, no abnormalities of the rectum. No signs of IBD. Clinically doing well. Mildly distended, but tolerating diet, no n/v/pain. PLAN: - ALAYNA - Await pathology - Cont. Abx - Cont. Simethicone prn - No sign of Crohn's, capsule endoscopy as outpatient maybe helpful - Supportive care - Pt seen and examined by Dr. Izquierdo and myself and this note is written on his behalf Chantale Yates May 26, 2016 15:37
[2016-05-26 16:00] VITALS: BP 111/61; PULSE 82; RESP 17; TEMP 98.4; O2SAT 98
--- NOTE | 2016-05-26 16:36 | HHI.PR ---
Subjective Subjective Remarks had cscope yesterday, tolerated well on regular diet loose stools no n/v abd. sightly distended awake, oriented x 3 son at bsd Review of Systems Constitutional Constitutional Remarks 12 point ROS completed, limited Vitals/Results Intake & Output 05/25/16 05/25/16 05/26/16 15:00 23:00 07:00 Intake Total 500 ml 280 ml 700 ml Output Total 500 ml Balance 0 ml 280 ml 700 ml Intake Oral 0 ml 280 ml IV Total 700 ml Other 500 ml Output Urine Total 500 ml # Voids 1 # Bowel Movements 2 1 Vital Signs Vital Signs Date Time Temp Pulse Resp B/P Pulse Ox O2 Delivery O2 Flow Rate FiO2 05/26/16 16:00 98.4 82 17 111/61 98 05/26/16 12:00 99.0 76 17 113/57 98 05/26/16 08:00 95.5 80 17 150/68 96 05/26/16 04:00 96.8 74 18 107/61 98 05/26/16 00:22 96.5 93 17 110/67 97 05/25/16 20:35 98.4 92 18 124/61 94 CBC/BMP: 05/25/16 0530 05/25/16 0530 Physical Exam General General Appearance: Well Developed, No Acute Distress, Comfortable Eyes Eye Exam: Pupils Equal, Pupils Reactive Ears & Nose Ears & Nose Exam: Nasal Mucosa [place] Throat Throat Exam: Oral Mucosa [place] & Moist Neck Neck Exam: Neck Supple, Trachea Midline Pulmonary Resp Exam: Breath Sounds Equal, No Distress Cardiology CV Exam: Regular Gastrointestinal/Abdomen GI Exam: Soft, Non-Tender, Bowel Sounds Present, Positive Bowel Movement, Distended Musculoskeletal MS Exam: Joints Intact Integumentary Skin Exam: Warm, Dry Extremeties Extremities Exam: No Edema, Pedal Pulses Palpable Neurologic Neuro Exam: Alert, Awake, Speech Clear, Moving All Extremities, No Focal Deficits Psychiatric Psych Exam: Appropriate Responses VTE Prophylaxis VTE Prophylaxis Device: SCDs VTE Prophylaxis Meds: Heparin PUD Prophylasis PUD Remarks Pepcid Assessment/Plan Problem List: (1) Small bowel obstruction (2) Abdominal pain (3) Leukocytosis (4) HTN (hypertension) (5) Intractable vomiting (6) Renal insufficiency Assessment/Plan appreciate surgical input-continue with conservative management imaging studies reviewed GI series, partial SBO D/W IFEOMA Bazan, recommends abx x 7 days total. Clear for dc Appreciate GI input S/P Colonoscopy (05/25/16)----> Small polyp in the cecum removed by snare, small polyp in the sigmoid removed by snare, the colon mucosa was otherwise normal retroflexed views revealed small internal hemorrhoids, no abnormalities of the rectum. No signs of IBD. Tolerating regular diet well D/C IV steroids Simethicone Abx -continue Cipro and Flagy Pepcid Monitor renal function, improving cautious hydration PT for eval and tx OOB with assist Improving, had one regular meal, did wel will keep one more night, plan to dc tomorrow family wants to fly Wednesday to [place], recommend that they give her time to recuperate then fly. Needs to f/u with GI for path report Labs in am D/W pt's son D/W Dr. Trujillo D/W RN This patient was seen by myself and Dr. Trujillo, this note is written on her behalf Problem Qualifiers (1) Abdominal pain: Qualified Code: R10.33 - Periumbilical abdominal pain (2) Leukocytosis: Qualified Code: D72.829 - Leukocytosis, unspecified type (3) HTN (hypertension): Qualified Code: I10 - Essential hypertension (4) Intractable vomiting: Qualified Code: R11.10 - Intractable vomiting, presence of nausea not specified , unspecified vomiting type Lynette Reynoso May 26, 2016 16:36
[2016-05-26] MEDS: D5-1/2 NS + KCL 20 MEQ INJ 1,000 ML IV SCH (17:56)
[2016-05-26 20:00] VITALS: BP 120/52; PULSE 84; RESP 20; TEMP 98.7; O2SAT 98
[2016-05-26] MEDS: ONDANSETRON HCL 4 MG/2 ML VIAL IVP PRN (23:51)
[2016-05-27] VITALS: BP 136/69; PULSE 83; RESP 20; TEMP 98; O2SAT 99
[2016-05-27 04:00] VITALS: BP 125/73; PULSE 78; RESP 20; TEMP 97.1; O2SAT 98
[2016-05-27] MEDS: D5-1/2 NS + KCL 20 MEQ INJ 1,000 ML IV SCH (05:14)
[2016-05-27 06:15] LABS: HEMATOCRIT 35.4 % (35.0-46.0); MEAN CELL VOLUME 87.4 FL (80.0-100.0); PLATELET COUNT 296 TH/MM3 (150-450); RED BLOOD COUNT 4.05 MIL/MM3 (4.00-5.30); RED CELL DISTRIBUTION WIDTH 16.6 % (11.6-17.2); REVIEW FLAG FINAL; WHITE BLOOD COUNT 13.1 TH/MM3 (4.0-11.0)
[2016-05-27 06:35] LABS: BICARBONATE 22.1 MEQ/L (21.0-32.0)
[2016-05-27] MEDS: SODIUM CHLORIDE 0.9% FLUSH 5 ML FLUSH FLUSH SCH (07:50)
[2016-05-27] MEDS: metroNIDAZOLE 500 MG INJ 100 ML IV SCH (07:50)
[2016-05-27 08:00] VITALS: BP 119/58; PULSE 81; RESP 18; TEMP 97.9; O2SAT 98
--- NOTE | 2016-05-27 09:56 | HHI.GIFU ---
Subjective Remarks Resting in bed. Tolerating diet. Mild abdominal distention, but no nausea, vomiting, abdominal pain. Tolerating diet. + flatus, + BM. Objective Vitals I&O Vital Signs Date Time Temp Pulse Resp B/P Pulse Ox O2 Delivery O2 Flow Rate FiO2 05/27/16 08:00 97.9 81 18 119/58 98 05/27/16 04:00 97.1 78 20 125/73 98 05/27/16 00:00 98.0 83 20 136/69 99 05/26/16 20:00 98.7 84 20 120/52 98 05/26/16 16:00 98.4 82 17 111/61 98 05/26/16 12:00 99.0 76 17 113/57 98 I/O 05/26/16 05/26/16 05/26/16 05/27/16 05/27/16 05/27/16 07:00 15:00 23:00 07:00 15:00 23:00 Intake Total 700 ml 240 ml 1222 ml 503 ml Output Total 600 ml Balance 700 ml -360 ml 1222 ml 503 ml Intake Oral 240 ml 480 ml 0 ml IV Total 700 ml 742 ml 503 ml Output Urine Total 600 ml # Voids 3 6 # Bowel Movements 2 1 Laboratory Laboratory Tests Test 05/27/16 05:42 White Blood Count 13.1 Red Blood Count 4.05 Hemoglobin 11.3 Hematocrit 35.4 Mean Corpuscular Volume 87.4 Mean Corpuscular Hemoglobin 28.0 Mean Corpuscular Hemoglobin 32.0 Concent Red Cell Distribution Width 16.6 Platelet Count 296 Mean Platelet Volume 8.0 Sodium Level 138 Potassium Level 4.0 Chloride Level 108 Carbon Dioxide Level 22.1 Anion Gap 8 Blood Urea Nitrogen 12 Creatinine 1.07 Estimat Glomerular Filtration 59 Rate Random Glucose 97 Calcium Level 8.1 Imaging Last Impressions Small Bowel X-Ray 05/22/16 0000 Signed Impressions: Service Date/Time: Sunday, May 22, 2016 17:33 - CONCLUSION: Abnormally dilated small bowel. Contrast reached the colon somewhere between 4 hours and 15 hours. This finding indicates a partial small bowel obstruction, likely in the distal small bowel due to the amount of dilated small bowel present. Earl Carrington MD Abdomen X-Ray 05/21/16 0600 Signed Impressions: Service Date/Time: May 05:54 - CONCLUSION: 1. Persistent gaseous distention of small bowel similar to May 20. NG coiled in stomach. Jonathan Sandoval MD Abdomen/Pelvis CT 05/21/16 0000 Signed Impressions: Service Date/Time: May 17:02 - CONCLUSION: 1. We can now clearly identify an appendix therefore I do not believe chronic appendicitis is within the differential. The terminal ileum never distends and the small bowel proximal to that is quite distended raising the possibility of a terminal ileitis or conceivably chronic Crohn's disease. 2. More peritoneal fluid today than there was on the previous study. Rhett Henley MD Physical Exam HEENT: Normocephalic; atraumatic; no jaundice. CHEST: CTA CARDIAC: RRR ABDOMEN: Soft, mildly distended, nontender; no hepatosplenomegaly; bowel sounds are present in all four quadrants. EXTREMITIES: No clubbing, cyanosis, or edema. SKIN: Normal; no rash; no jaundice. COVER ASSEMBLER: No focal deficits; alert and oriented times three. Assessment and Plan Plan ASSESSMENT: - Abdominal pain with nausea and vomiting with abnormal findings on CT suggestive of possible ileus versus obstruction. Abdomen/Pelvis CT (05/21/16)--- > 1. We can now clearly identify an appendix therefore I do not believe chronic appendicitis is within the differential. The terminal ileum never distends and the small bowel proximal to that is quite distended raising the possibility of a terminal ileitis or conceivably chronic Crohn's disease. 2. More peritoneal fluid today than there was on the previous study. Small Bowel X-Ray (05/22/16)----> Abnormally dilated small bowel. Contrast reached the colon somewhere between 4 hours and 15 hours. This finding indicates a partial small bowel obstruction, likely in the distal small bowel due to the amount of dilated small bowel present. SED Rate 23. S/P Colonoscopy (05/25/16)----> Small polyp in the cecum removed by snare, small polyp in the sigmoid removed by snare, the colon mucosa was otherwise normal retroflexed views revealed small internal hemorrhoids, no abnormalities of the rectum. Pathology cecum biopsy with tubular adenoma. Sigmoid colon biopsy with vegetable matter. No mucosal tissue identified. No signs of IBD. Clinically doing well. Mildly distended, but tolerating diet, no n/v/pain. PLAN: - Okay to d/c home from GI standpoint - ALAYNA - No sign of Crohn's, capsule endoscopy as outpatient maybe helpful - FU DEANNA 2 weeks - Pt seen and examined by Dr. Izquierdo and myself and this note is written on his behalf Chantale Yates May 27, 2016 09:56
[2016-05-27 12:00] VITALS: BP 116/56; PULSE 91; RESP 17; TEMP 97.6; O2SAT 98
[2016-05-27] MEDS: CIPROFLOXACIN 400 MG PREMIX 200 ML IV SCH (12:00)
--- NOTE | 2016-05-27 14:37 | HHI.PR ---
Subjective Subjective Remarks tolerating regular diet no n/v abd. soft, non tender awake, oriented x 3 son at bsd getting up with PT anxious to go home (Lynette Reynoso) Review of Systems Constitutional Constitutional Remarks 12 point ROS completed, limited (Lynette Reynoso) Vitals/Results Intake & Output 05/26/16 05/26/16 05/27/16 15:00 23:00 07:00 Intake Total 240 ml 1222 ml 503 ml Output Total 600 ml Balance -360 ml 1222 ml 503 ml Intake Oral 240 ml 480 ml 0 ml IV Total 742 ml 503 ml Output Urine Total 600 ml # Voids 3 6 # Bowel Movements 2 1 Vital Signs Vital Signs Date Time Temp Pulse Resp B/P Pulse Ox O2 Delivery O2 Flow Rate FiO2 05/27/16 12:00 97.6 91 17 116/56 98 05/27/16 08:00 97.9 81 18 119/58 98 05/27/16 04:00 97.1 78 20 125/73 98 05/27/16 00:00 98.0 83 20 136/69 99 05/26/16 20:00 98.7 84 20 120/52 98 05/26/16 16:00 98.4 82 17 111/61 98 (Lynette Reynoso) CBC/BMP: 05/27/16 0542 05/27/16 0542 Lab Results Laboratory Tests Test 05/27/16 05:42 White Blood Count 13.1 TH/MM3 Red Blood Count 4.05 MIL/MM3 Hemoglobin 11.3 GM/DL Hematocrit 35.4 % Mean Corpuscular Volume 87.4 FL Mean Corpuscular Hemoglobin 28.0 PG Mean Corpuscular Hemoglobin 32.0 % Concent Red Cell Distribution Width 16.6 % Platelet Count 296 TH/MM3 Mean Platelet Volume 8.0 FL Sodium Level 138 MEQ/L Potassium Level 4.0 MEQ/L Chloride Level 108 MEQ/L Carbon Dioxide Level 22.1 MEQ/L Anion Gap 8 MEQ/L Blood Urea Nitrogen 12 MG/DL Creatinine 1.07 MG/DL Estimat Glomerular Filtration 59 ML/MIN Rate Random Glucose 97 MG/DL Calcium Level 8.1 MG/DL (Lynette Reynoso) Physical Exam General General Appearance: Well Developed, No Acute Distress, Comfortable (Gross, Lynette G. GOLF CART MECHANIC) Eyes Eye Exam: Pupils Equal, Pupils Reactive (Lynette Reynoso GGeoffrey GOLF CART MECHANIC) Ears & Nose Ears & Nose Exam: Nasal Mucosa [place] (Lynette Reynoso GGeoffrey GOLF CART MECHANIC) Throat Throat Exam: Oral Mucosa [place] & Moist (Lynette Reynoso GGeofrfey GOLF CART MECHANIC) Neck Neck Exam: Neck Supple, Trachea Midline (Lynette Reynoso GGeoffrey GOLF CART MECHANIC) Pulmonary Resp Exam: Breath Sounds Equal, No Distress (Lynette Reynoso GOLF CART MECHANIC) Cardiology CV Exam: Regular (Lynette Reynoso GOLF CART MECHANIC) Gastrointestinal/Abdomen GI Exam: Soft, Non-Tender, Bowel Sounds Present, Positive Bowel Movement, Distended (Lynette Reynoso G. GOLF CART MECHANIC) Musculoskeletal MS Exam: Joints Intact (Lynette Reynoso. GOLF CART MECHANIC) Integumentary Skin Exam: Warm, Dry (Lynette Reynoso GGeoffrey GOLF CART MECHANIC) Extremeties Extremities Exam: No Edema, Pedal Pulses Palpable (Lynette Reynoso G. GOLF CART MECHANIC) Neurologic Neuro Exam: Alert, Awake, Speech Clear, Moving All Extremities, No Focal Deficits (Lynette Reynoso GOLF CART MECHANIC) Psychiatric Psych Exam: Appropriate Responses (Lynette ReynosoP) VTE Prophylaxis VTE Prophylaxis Device: SCDs VTE Prophylaxis Meds: Heparin (Lynette Reynoso G. GOLF CART MECHANIC) PUD Prophylasis PUD Remarks Pepcid (Lynette Reynoso GGeoffrey GOLF CART MECHANIC) Assessment/Plan Problem List: (1) Small bowel obstruction (2) Abdominal pain (3) Leukocytosis (4) HTN (hypertension) (5) Intractable vomiting (6) Renal insufficiency Assessment/Plan appreciate surgical input-continue with conservative management imaging studies reviewed GI series, partial SBO D/W IFEOMA Bazan, recommends abx x 7 days total. Clear for dc Appreciate GI input S/P Colonoscopy (05/25/16)----> Small polyp in the cecum removed by snare, small polyp in the sigmoid removed by snare, the colon mucosa was otherwise normal retroflexed views revealed small internal hemorrhoids, no abnormalities of the rectum. No signs of IBD. Tolerating regular diet well Simethicone Abx -continue Cipro and Flagy Pepcid renal function stable off IVF PT for eval and tx OOB with assist tolerating meals well, clear for dc by GI and surgery family wants to fly Wednesday to [place], recommend that they give her time to recuperate then fly. Needs to f/u with GI for path report Discharge home today F/U GI 2 weeks Diet-as tolerated Activity-as tolerated D/W pt's son D/W Dr. Trujillo D/W RN D/W CM This patient was seen by myself and Dr. Trujillo, this note is written on her behalf (Lynette Reynoso) Assessment/Plan seen, examined by myself, Dr Trujillo, today Discussed with patient and her family at her bedside She could be discharged today She cannot copy of her medical records Discussed with mid level provider The exam, history, and the medical decision-making described in the above note were completed with the assistance of the mid-level provider. I reviewed the findings presented. I attest that I had a [id number] encounter with the patient on the same day, and personally performed and documented my assessment and findings in the medical record. signed (Karen Trujillo MD) Problem Qualifiers (1) Abdominal pain: Qualified Code: R10.33 - Periumbilical abdominal pain (2) Leukocytosis: Qualified Code: D72.829 - Leukocytosis, unspecified type (3) HTN (hypertension): Qualified Code: I10 - Essential hypertension (4) Intractable vomiting: Qualified Code: R11.10 - Intractable vomiting, presence of nausea not specified , unspecified vomiting type Lynette Reynoso May 27, 2016 14:37 Karen Trujillo MD May 27, 2016 14:45
[2016-05-27] MEDS ORDERED: METR-1 PO (14:43)
[2016-05-27] MEDS ORDERED: CIPR-9 PO (14:43)
--- NOTE | 2016-05-27 14:43 | HHI.DCPOC ---
Discharge Care Plan Diagnosis: (1) Leukocytosis (2) Renal insufficiency (3) Small bowel obstruction (4) Abdominal pain (5) HTN (hypertension) (6) Intractable vomiting Your Health Problems Are: Appetite Changes Irregular Bowel Function Goals to Promote Your Health * To prevent worsening of your condition and complications * To maintain your health at the optimal level Directions to Meet Your Goals Take your medications as prescribed Follow your dietary instruction Follow activity as directed Keep your appointments as scheduled Take your immunizations and boosters as scheduled If your symptoms worsen call your PCP, if no PCP go to Urgent Care Center or Emergency Room Smoking is Dangerous to Your Health. Avoid second hand smoke Call the 24-hour hour crisis hotline for domestic abuse at Lynette Reynoso [facility] May 27, 2016 14:43
--- NOTE | 2016-06-22 20:13 | HHI.DS ---
Discharge Summary Admission Date May 20, 2016 at 15:15 Discharge Date: May 27, 2016 Admitting Diagnosis early small bowel obstruction, abdominal pain, vomiting (1) Small bowel obstruction (2) Leukocytosis (3) Renal insufficiency (4) HTN (hypertension) (5) Intractable vomiting (6) Abdominal pain Procedures S/P Colonoscopy (05/25/16)----> Small polyp in the cecum removed by snare, small polyp in the sigmoid removed by snare, the colon mucosa was otherwise normal retroflexed views revealed small internal hemorrhoids, no abnormalities of the rectum. No signs of IBD. Imaging Last Impressions Small Bowel X-Ray 05/22/16 0000 Signed Impressions: Service Date/Time: Sunday, May 22, 2016 17:33 - CONCLUSION: Abnormally dilated small bowel. Contrast reached the colon somewhere between 4 hours and 15 hours. This finding indicates a partial small bowel obstruction, likely in the distal small bowel due to the amount of dilated small bowel present. Earl Carrington MD Abdomen X-Ray 05/21/16 0600 Signed Impressions: Service Date/Time: May 05:54 - CONCLUSION: 1. Persistent gaseous distention of small bowel similar to May 20. NG coiled in stomach. Jonathan Sandoval MD Abdomen/Pelvis CT 05/21/16 0000 Signed Impressions: Service Date/Time: May 17:02 - CONCLUSION: 1. We can now clearly identify an appendix therefore I do not believe chronic appendicitis is within the differential. The terminal ileum never distends and the small bowel proximal to that is quite distended raising the possibility of a terminal ileitis or conceivably chronic Crohn's disease. 2. More peritoneal fluid today than there was on the previous study. Rhett Henley MD Hospital Course This is a pleasant 85-year-old black female who had been in her usual state of health up until the past few days. She noticed some mild pain in her mid abdomen around the umbilical area which seemed to be more of a cramping sensation. She states the pain would come and go but after 24 hours the pain became more intense to the point that the patient could not rest last night. She now describes it as a sharp pain that does not radiate. It seems to stay in the area of her periumbilical area. She does complain of some nausea and vomiting in which she vomited several times last night. She also notes some diarrhea approximately a week ago. The patient does take laxatives on an as needed basis but states that sometimes she has to take one or two doses every week for her bowels to move. She does not remember when she had her last normal bowel movement but she thinks it was a day or two before this diarrhea started up approximately a week ago. The patient states that she did eat a regular supper last night but was unable to eat any breakfast this morning. She currently has a neighbor who is at her bedside and assisting with some of her history. The patient is alert, oriented, cooperative but she is a fair historian when it comes to her history. She can answer simple yes or no questions. Currently the patient denies any chest pain. No shortness of breath. No headache. No acute weight gain or weight loss over the past few months. The patient does walk with a cane. She is able to do most of her activities of daily living but she does have two grown daughters that live in the home with her. LABORATORY DATA Diagnostic data, WBC is 13.3, RBC 4.36, hemoglobin 12.6, hematocrit 37.9. Platelet count 355. Lymphocyte count 5.8. Neutrophil count although 88. PT INR 1.0. Chemistry shows sodium of 136, potassium 3.8, chloride 99, carbon dioxide 26.1, anion gap 11. BUN 29, creatinine 1.37. GFR 44. Glucose is 135. Troponin is less than 0.02. Albumin 3.1. Urine is yellow, clear, pH is 7.0, specific gravity is 1.030, protein 100, glucose negative. Ketones trace. Occult blood negative. Nitrates negative. Bilirubin negative. Leukocyte esterase negative. No culture pending. IMAGING Shows abdominal CT scan initially done at [address] scan, cannot exclude an abscess but there is only a partial bowel opaque showing in the study. Extensive vascular calcifications on the aorta. This scan was repeated at 10:08, suspicious for small bowel obstruction at or near the cecum or the terminal ileum. There is no inflammatory changes to show an inflammatory process. The liver is small and shrunken with a modest amount of ascites. In spite of moderate vascular calcification I see a normal SMA. The DWAYNE is not that well visualized. Patient was admitted for the following: (1) Small bowel obstruction (2) Abdominal pain (3) Leukocytosis (4) HTN (hypertension) (5) Intractable vomiting (6) Renal insufficiency During the course of the hospitalization, the following took place: Pt. admitted, put on IVF, NGT inserted to LIS Pain management ordered. Started on antibiotics Surgery consulted. Conservative management followed, pt's family didn't want invasive procedures. imaging studies reviewed GI series, partial SBO D/W surgery team, recommended abx x 7 days total. Cleared for dc GI also consulted. Work up initiated. S/P Colonoscopy (05/25/16)----> Small polyp in the cecum removed by snare, small polyp in the sigmoid removed by snare, the colon mucosa was otherwise normal retroflexed views revealed small internal hemorrhoids, no abnormalities of the rectum. No signs of IBD. Diet advanced slowly, Tolerated regular diet well Simethicone ordered. Pepcid given renal function stable IVF DC PT for eval and tx OOB with assist tolerating meals well, clear for dc by GI and surgery family wanted to fly Wednesday to [place], recommended that they give pt time to recuperate then fly. Needs to f/u with GI for path report Discharged home in stable condition, was eating, no abd. pain. F/U GI 2 weeks Diet-as tolerated Activity-as tolerated Pt Condition on Discharge: Stable Discharge Disposition: Discharge Home Discharge Instructions DIET: Follow Instructions for: As Tolerated, No Restrictions Activities you can perform: Weight Bearing as [place] Follow up Referrals: Gastroenterology - 2 Weeks @ [facility] PCP Follow-up - 1 Week Discontinued Medications: Hydrocodone-Ibuprofen (Vicoprofen) 7.5 Mg/200 Mg Tab 1 TAB PO QID Lynette Reynoso Jun 22, 2016 20:13
== END 2016-05-27 18:38 | disposition home or self-care (01) | DRG 389 ==
LOC: NEPC 07:36 → NEDA 15:15 → N07B 19:21
PROVIDERS: ADMIT Internal Medicine; ATTEND Internal Medicine
PROC: 0DBN8ZX Excision of Sigmoid Colon, Via Natural or Artificial Opening Endoscopic, Diagnostic (ICD-10-PCS; 2016-05-25)
PROC: 0DBH8ZX Excision of Cecum, Via Natural or Artificial Opening Endoscopic, Diagnostic (ICD-10-PCS; principal; 2016-05-25 11:50)
DX: K56.60 Unspecified intestinal obstruction (principal); E44.1 Mild protein-calorie malnutrition; N17.9 Acute kidney failure, unspecified; E86.0 Dehydration; M06.9 Rheumatoid arthritis, unspecified; I10 Essential (primary) hypertension; E78.5 Hyperlipidemia, unspecified; Z68.25 Body mass index [BMI] 25.0-25.9, adult; D12.0 Benign neoplasm of cecum; D12.5 Benign neoplasm of sigmoid colon; K64.8 Other hemorrhoids
CPT/HCPCS: 74000; 74176; 74177; 74250; 76937; 80048; 80053; 81001; 82948; 83605; 83690; 83735; 84100; 84484; 85007; 85025; 85027; 85610; 85652; 86140; 86850; 86900; 86901; 88305; 88307; 93005; 96361; 96365; 96375; J0744; J1644; J2270; J2405; J2543; J2765; J2920; J3480; J7040; Q9963; Q9967

== ENCOUNTER 2016-06-03 13:26 | Emergency (ER) | payer MEDICARE, BC ==
[~2016-06-03] VITALS: Ht 167.6 cm; Wt 68.0 kg
[~2016-06-03 13:26] MED LIST changes: -ASPI81 PO; +CIPR-9 PO; +METR-1 PO; -VICOTAB4 PO
[2016-06-03 13:27] VITALS: BP 107/55; PULSE 107; RESP 16; O2SAT 99
--- NOTE | 2016-06-03 13:52 | PD ---
HPI . Lower abdominal pain and constipation Chief Complaint: GI Complaint Time Seen by Provider: 13:52 Travel History International Travel<30 days: No Contact w/Intl Traveler<30days: No Traveled to known affect area: No History of Present Illness HPI 86-year-old female with history of arthritis, hyperlipidemia, hypertension and intermittent constipation here with complaints of lower abdominal pain and a gassy sensation in her abdomen. Patient was recently admitted to the hospital and discharged on May 27, 2016 due to a possible spinal bowel obstruction. However the course of her hospital stay workup was done and there was no significant evidence of a small bowel obstruction. She did have a colonoscopy that was fairly unremarkable except for a polyp. She was initially placed on nothing by mouth diet and slowly advanced and was tolerating food prior to discharge. She has been home for several days and has been brought back by her family members. Her son is at bedside and reports that she has been having low oral intake and abdominal pain. Patient tells me that she eats, but does not have much of an appetite. She admits to having a gassy feeling in her abdomen. She states if she was able to pass gas or have a good bowel movement, she would probably feel better. She denies any fever, chills, chest pain, nausea, vomiting, weakness or fatigue she tells me that her family is trying to move her to [place] and she doesn't like it. She tells me that they boss her around. She had to whisper all of this to me to avoid her son overhearing her conversation. He is in the room and wants to know what is going on so [place] I also spoke to her sister Delicia on the phone. She is reiterating the need to stabilize her sister so that they can get her move. Of note patient has had some significant stressors in her life recently. On top of her family wanting her to move, her daughter recently yesterday here at [place] from what appears an aneurysm. PFSH Past Medical History Hx Anticoagulant Therapy: No Arthritis: Yes Heart Rhythm Problems: Yes (TACHYCARDIA) High Cholesterol: Yes Diabetes: No Genitourinary: No Hypertension: Yes Musculoskeletal: Yes Neurologic: No Reproductive: No Respiratory: No Immunizations Current: No Thyroid Disease: No ?: Not Menopausal: Yes Past Surgical History Tonsillectomy: Yes Other Surgery: Yes Social History Alcohol Use: No Tobacco Use: No Substance Use: No Allergies-Medications (Allergen,Severity, Reaction): Coded Allergies: Motrin (Verified Allergy, Severe, 06/03/16) Reported Meds & Prescriptions Reported Meds & Active Scripts Active Active Prescriptions or Reported Medications Unobtainable Review of Systems General / Constitutional: No: Fever Eyes: No: Visual changes HENT: No: Headaches Cardiovascular: No: Chest Pain or Discomfort Respiratory: No: Shortness of Breath Gastrointestinal: Positive: Abdominal Pain, Loss of Appetite Genitourinary: No: Dysuria Musculoskeletal: No: Pain Skin: No Rash Neurologic: No: Weakness Psychiatric: No: Depression Endocrine: No: Polydipsia Hematologic/Lymphatic: No: Easy Bruising Physical Exam Narrative GENERAL: AAO x 3, no acute distress, Well-nourished, well-developed patient. SKIN: Warm and dry. No visible rashes or bruising. HEAD: Normocephalic and atraumatic. EYES: No scleral icterus. No injection or drainage. ENT: No nasal drainage noted. Mucous membranes pink. Airway patent. NECK: Supple, trachea midline. No JVD. CARDIOVASCULAR: Regular rate and rhythm without murmurs, gallops, or rubs. RESPIRATORY: Breath sounds equal bilaterally. No accessory muscle use. No rhonchi or rales. GASTROINTESTINAL: Abdomen is slightly distended. Dullness to percussion. Diminished bowel sounds EXTREMITIES: No cyanosis or edema. BACK: Nontender without obvious deformity. No CVA tenderness. PSYCH: AAO x 3, normal affect. Data Data Last Documented VS Vital Signs Date Time Temp Pulse Resp B/P Pulse Ox O2 Delivery O2 Flow Rate FiO2 06/03/16 14:06 20 06/03/16 13:27 107 107/55 99 Room Air Orders Abdomen, Flat & Upright (06/03/16 ) Chest, Single Ap (06/03/16 ) Complete Blood Count With Diff (06/03/16 15:07) Comprehensive Metabolic Panel (06/03/16 15:07) Ct Abd/Pel W/O Iv Contrast (06/03/16 ) Lactic Acid (06/03/16 15:07) Urinalysis - C+S If Indicated (06/03/16 15:07) Iv Access Insert/Monitor (06/03/16 15:09) NPO (06/03/16 15:09) Vascular Access Team Consult PRN (06/03/16 15:25) Vascular Poc Ultrasound (06/03/16 ) Labs Laboratory Tests Test 06/03/16 18:18 White Blood Count 12.4 TH/MM3 Red Blood Count 3.76 MIL/MM3 Hemoglobin 10.5 GM/DL Hematocrit 32.3 % Mean Corpuscular Volume 85.7 FL Mean Corpuscular Hemoglobin 27.8 PG Mean Corpuscular Hemoglobin 32.5 % Concent Red Cell Distribution Width 16.3 % Platelet Count 305 TH/MM3 Mean Platelet Volume 7.2 FL Neutrophils (%) (Auto) 84.1 % Lymphocytes (%) (Auto) 9.5 % Monocytes (%) (Auto) 5.2 % Eosinophils (%) (Auto) 0.6 % Basophils (%) (Auto) 0.6 % Neutrophils # (Auto) 10.5 TH/MM3 Lymphocytes # (Auto) 1.2 TH/MM3 Monocytes # (Auto) 0.7 TH/MM3 Eosinophils # (Auto) 0.1 TH/MM3 Basophils # (Auto) 0.1 TH/MM3 CBC Comment DIFF FINAL Differential Comment Sodium Level 136 MEQ/L Potassium Level 3.9 MEQ/L Chloride Level 103 MEQ/L Carbon Dioxide Level 22.9 MEQ/L Anion Gap 10 MEQ/L Blood Urea Nitrogen 23 MG/DL Creatinine 1.10 MG/DL Estimat Glomerular Filtration 57 ML/MIN Rate Random Glucose 99 MG/DL Lactic Acid Level 1.0 mmol/L Calcium Level 8.4 MG/DL Total Bilirubin 0.4 MG/DL Aspartate Amino Transf 17 U/L (AST/SGOT) Alanine Aminotransferase 8 U/L (ALT/SGPT) Alkaline Phosphatase 40 U/L Total Protein 6.1 GM/DL Albumin 2.3 GM/DL [facility] Medical Decision Making Medical Screen Exam Complete: Yes Emergency Medical Condition: Yes Medical Record Reviewed: Yes Differential Diagnosis Constipation, small bowel instruction, diverticulitis Narrative Course 86-year-old female with history of arthritis, hyperlipidemia, hypertension and intermittent constipation here with complaints of lower abdominal pain and a gassy sensation in her abdomen. Patient was recently admitted to the hospital and discharged on May 27, 2016 due to a possible spinal bowel obstruction. However the course of her hospital stay workup was done and there was no significant evidence of a small bowel obstruction. She did have a colonoscopy that was fairly unremarkable except for a polyp. She was initially placed on nothing by mouth diet and slowly advanced and was tolerating food prior to discharge. She has been home for several days and has been brought back by her family members. Her son is at bedside and reports that she has been having low oral intake and abdominal pain. Patient tells me that she eats, but does not have much of an appetite. She admits to having a gassy feeling in her abdomen. She states if she was able to pass gas or have a good bowel movement, she would probably feel better. She denies any fever, chills, chest pain, nausea, vomiting, weakness or fatigue she tells me that her family is trying to move her to [place] and she doesn't like it. She tells me that they boss her around. She had to whisper all of this to me to avoid her son overhearing her conversation. Patient seen and examined. Case discussed with Dr. Vira Pereira Abd xray. Results show possible bowel obstruction. Although the patient has received several CT scans within last month, we will need an additional scan due to the xray. Labs ordered. Discussed with patient and her son. 1511: patient is stable and doing well. No distress. Explained to patient that we were waiting on CT scan results. 1651:She is doing well and has no specific complaints. Last 24 hours Impressions Chest X-Ray 06/03/16 0000 Signed Impressions: Service Date/Time: Friday, June 03, 2016 14:32 - CONCLUSION: No acute disease. Earl Pabon MD Abdomen/Pelvis CT 06/03/16 0000 Signed Impressions: Service Date/Time: Friday, June 03, 2016 16:36 - CONCLUSION: 1. Mild ascites. 2. Atelectasis or consolidation identified at the posterior lung bases bilaterally being more prominent on the left. 3. Atherosclerotic change in throughout the arterial system. 4. Asymmetry of the kidneys suggesting some degree of atrophy of the right kidney. There is a suspected left renal cyst. Earl Pabon MD Abdomen X-Ray 06/03/16 0000 Signed Impressions: Service Date/Time: Friday, June 03, 2016 14:33 - CONCLUSION: Nonspecific mild dilatation of the small bowel. Some degree of obstruction or ileus could have this appearance. Earl Pabon MD Laboratory Tests Test 06/03/16 18:18 White Blood Count 12.4 TH/MM3 Red Blood Count 3.76 MIL/MM3 Hemoglobin 10.5 GM/DL Hematocrit 32.3 % Mean Corpuscular Volume 85.7 FL Mean Corpuscular Hemoglobin 27.8 PG Mean Corpuscular Hemoglobin 32.5 % Concent Red Cell Distribution Width 16.3 % Platelet Count 305 TH/MM3 Mean Platelet Volume 7.2 FL Neutrophils (%) (Auto) 84.1 % Lymphocytes (%) (Auto) 9.5 % Monocytes (%) (Auto) 5.2 % Eosinophils (%) (Auto) 0.6 % Basophils (%) (Auto) 0.6 % Neutrophils # (Auto) 10.5 TH/MM3 Lymphocytes # (Auto) 1.2 TH/MM3 Monocytes # (Auto) 0.7 TH/MM3 Eosinophils # (Auto) 0.1 TH/MM3 Basophils # (Auto) 0.1 TH/MM3 CBC Comment DIFF FINAL Differential Comment Sodium Level 136 MEQ/L Potassium Level 3.9 MEQ/L Chloride Level 103 MEQ/L Carbon Dioxide Level 22.9 MEQ/L Anion Gap 10 MEQ/L Blood Urea Nitrogen 23 MG/DL Creatinine 1.10 MG/DL Estimat Glomerular Filtration 57 ML/MIN Rate Random Glucose 99 MG/DL Lactic Acid Level 1.0 mmol/L Calcium Level 8.4 MG/DL Total Bilirubin 0.4 MG/DL Aspartate Amino Transf 17 U/L (AST/SGOT) Alanine Aminotransferase 8 U/L (ALT/SGPT) Alkaline Phosphatase 40 U/L Total Protein 6.1 GM/DL Albumin 2.3 GM/DL CT scan appreciated and compared to prior. No significant change. No definitive bowel obstruction. Upon further discussion with patient and her son, apparently patient is taking Pepto-Bismol frequently. She has been advised to stop doing so. Patient is adamant that she does not want to be admitted. At this time there is no significant findings on workup requiring inpatient admission. Her primary care provider is Dr. Correa. She has been advised to follow-up with her in the next 3 days. I advised her to return to the ED if her symptoms return or worsen. I encouraged her to stay hydrated and eat a balanced meal. I have also advised that she can try to supplement which shakes such as ensure or boost. No change to her meds. Patient verbalized understanding of instructions, questions were answered, and thanked me for their care. I advised them if their condition worsens, please return to the nearest emergency room for further care. Diagnosis Primary Impression: Abdominal pain Qualified Code: R10.84 - Generalized abdominal pain Additional Instructions: Please return to emergency department if your symptoms return or worsen. Follow up with your primary care provider. Follow-up with Dr. Correa in the next 3 days. Use Tylenol as needed for pain. Med/Other Pt SpecificInfo: No Change to Meds Scripts Unable to Obtain Active Prescriptions or Reported Meds Disposition: 01 DISCHARGE HOME Condition: Stable Stacia Rivas Jun 03, 2016 13:52
--- NOTE | 2016-06-03 14:57 | RADRPT ---
EXAM DATE/TIME: 06/03/2016 14:32 [facility] COMPARISON: No previous studies available for comparison. INDICATIONS : Chest Pain MEDICAL HISTORY : Cardiovascular disease. Hypertension. Early small bowel obstruction. SURGICAL HISTORY : None. ENCOUNTER: Initial ACUITY: 2 days PAIN SCORE: 4/10 LOCATION: Bilateral chest FINDINGS: A single view of the chest demonstrates the lungs to be symmetrically aerated without evidence of mas s, infiltrate or effusion. The cardiomediastinal contours are unremarkable. The aorta is calcified. Osseous structures are intact. CONCLUSION: No acute disease. Earl Pabon MD on June 03, 2016 at 14:54 Board Certified Radiologist. This report was verified electronically.
--- NOTE | 2016-06-03 15:03 | RADRPT ---
EXAM DATE/TIME: 06/03/2016 14:33 [facility] COMPARISON: No previous studies available for comparison. INDICATIONS : Abdomen Pain MEDICAL HISTORY : Cardiovascular disease. Hypertension. Early small bowel obstruction. SURGICAL HISTORY : None. ENCOUNTER: Initial ACUITY: 2 days PAIN SCORE: 5/10 LOCATION: Bilateral abdomen FINDINGS: Supine and upright views of the abdomen were performed. Air seen within prominent small bowel in the midabdomen. Significantly distended colon is not seen. Free air is not seen. There is degenerative c hange in the spine. CONCLUSION: Nonspecific mild dilatation of the small bowel. Some degree of obstruction or ileus could have this a ppearance. Earl Pabon MD on June 03, 2016 at 14:57 Board Certified Radiologist. This report was verified electronically.
--- NOTE | 2016-06-03 17:12 | RADRPT ---
EXAM DATE/TIME: 06/03/2016 16:36 [facility] COMPARISON: CT ABDOMEN & PELVIS W/O CONTRAST, May 21, 2016, 17:02. INDICATIONS : Abdominal pain with nausea and vomiting. ORAL CONTRAST: No oral contrast ingested. RADIATION DOSE: 12.40 CTDIvol (mGy) MEDICAL HISTORY : Hypertension. SURGICAL HISTORY : None documented. ENCOUNTER: Initial ACUITY: 3 days PAIN SCALE: 8/10 LOCATION: Bilateral lower quadrant TECHNIQUE: Volumetric scanning of the abdomen and pelvis was performed. Using automated exposure control and adjustment of the mA and/or kV according to patient size, radiation dose was kept as low as reasonably achievable to obtain optimal diagnostic quality images. FINDINGS: The liver, spleen, pancreas and adrenal glands are unremarkable. The gallbladder is no t distended. There does appear to be asymmetry to the kidneys with the right kidney appearing smalle r likely representing some degree of atrophy. There is a 3.3 cm low density mass at the posterior in ferior left kidney likely related to a cyst. No hydronephrosis is identified. Atherosclerotic calci fications are seen throughout the arterial system. The aorta measures 3 cm at the level of the aorti c hiatus at the upper abdomen. There is a mild amount of ascites seen around the liver and spleen. This extends into the pericolic gutter region especially on the right. The bowel is unremarkable. 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 There is degenerative change throughout the lumbar spine. There is increased density at the posterior lung b ases bilaterally being more prominent on the left around the aorta likely related to atelectasis. CONCLUSION: 1. Mild ascites. 2. Atelectasis or consolidation identified at the posterior lung bases bilaterally being more promine nt on the left. 3. Atherosclerotic change in throughout the arterial system. 4. Asymmetry of the kidneys suggesting some degree of atrophy of the right kidney. There is a suspect ed left renal cyst. Earl Pabon MD on June 03, 2016 at 16:58 Board Certified Radiologist. This report was verified electronically.
[2016-06-03 18:29] LABS: AUTOMATED NEUTROPHIL # 10.5 TH/MM3 (1.8-7.7); BASOPHIL # 0.1 TH/MM3 (0-0.2); BASOPHIL % 0.6 % (0.0-2.0); EOSINOPHIL # 0.1 TH/MM3 (0-0.4); EOSINOPHIL % 0.6 % (0.0-4.0); HEMATOCRIT 32.3 % (35.0-46.0); HEMO FLAGS DIFF FINAL; LYMPH % 9.5 % (9.0-44.0); LYMPHOCYTE # 1.2 TH/MM3 (1.0-4.8); MEAN CELL VOLUME 85.7 FL (80.0-100.0); MEAN CORPUSCULAR HEMOGLOBIN 27.8 PG (27.0-34.0); MEAN CORPUSCULAR HGB CONC 32.5 % (32.0-36.0); MONO % 5.2 % (0.0-8.0); NEUT % 84.1 % (16.0-70.0); PLATELET COUNT 305 TH/MM3 (150-450); RED BLOOD COUNT 3.76 MIL/MM3 (4.00-5.30); RED CELL DISTRIBUTION WIDTH 16.3 % (11.6-17.2); WHITE BLOOD COUNT 12.4 TH/MM3 (4.0-11.0)
[2016-06-03 18:57] LABS: ALKALINE PHOSPHATASE 40 U/L (45-117); ALT (GPT) 8 U/L (10-53); ANION GAP 10 MEQ/L (5-15); AST (GOT) 17 U/L (15-37); BICARBONATE 22.9 MEQ/L (21.0-32.0); BLOOD UREA NITROGEN 23 MG/DL (7-18); CHLORIDE 103 MEQ/L (98-107); GLOMERULAR FILTRATION RATE 57 ML/MIN (>89); POTASSIUM 3.9 MEQ/L (3.5-5.1); SODIUM (NA) 136 MEQ/L (136-145); TOTAL BILIRUBIN ADULT 0.4 MG/DL (0.2-1.0)
[2016-06-03 19:12] VITALS: BP 102/59
== END 2016-06-03 19:35 | disposition home or self-care (01) ==
LOC: NEPC 13:26
DX: R10.9 Unspecified abdominal pain (principal); R00.0 Tachycardia, unspecified; E78.00 Pure hypercholesterolemia, unspecified; I10 Essential (primary) hypertension
CPT/HCPCS: 71010; 74020; 74176; 80053; 83605; 85025